=== PATIENT | female | born 1965 | race Caucasian/White ===

== ENCOUNTER → 2016-06-24 | Outpatient (CLI) | payer OTHER ==
--- NOTE | 2016-06-24 12:54 | MM ---
Reason for exam: screening (asymptomatic). Last mammogram was performed 1 year ago. History: Patient has history of other cancer at age 47. Family history of breast cancer in mother at age 73, breast cancer in maternal cousin at age 47, and breast cancer in cousin at age 40. Taking hormonal contraceptives for 1 year. Physical Findings: A clinical breast exam by your physician is recommended on an annual basis and results should be correlated with mammographic findings. MG 3D Screening Mammo W/Cad Bilateral CC and MLO view(s) were taken. Prior study comparison: July 02, 2015, bilateral MG screening mammo w CAD. December 27, 2013, left breast MG work up mamm w CAD LT. There are scattered fibroglandular densities. Finding: There are typically benign round calcifications in both breasts. There is a chronic nodularity bilaterally. There is no discrete abnormality. ASSESSMENT: Benign, BI-RAD 2 RECOMMENDATION: Routine screening mammogram of both breasts in 1 year.
== END | disposition home or self-care (01) ==
LOC: RADMAMWWP 07:29
PROVIDERS: ATTEND Obstetrics & Gynecology
DX: Z12.31 Encounter for screening mammogram for malignant neoplasm of breast (principal)
CPT/HCPCS: 77063; G0202

== ENCOUNTER → 2016-06-25 | Outpatient (CLI) | payer OTHER ==
[2016-06-25 16:21] LABS: Blood Urea Nitrogen 12 mg/dL (7-17); Non-African American GFR(MDRD) >60 (>60 ml/min/1.73 sqM)
== END | disposition home or self-care (01) ==
LOC: LABWHC1 15:47
PROVIDERS: ATTEND Psychiatry & Neurology Neurology
DX: Z01.818 Encounter for other preprocedural examination (principal); H53.9 Unspecified visual disturbance; H53.8 Other visual disturbances; R26.9 Unspecified abnormalities of gait and mobility; M54.2 Cervicalgia; M54.5 Low back pain; M54.30 Sciatica, unspecified side
CPT/HCPCS: 36415; 82565; 84520

== ENCOUNTER → 2016-06-26 | Outpatient (CLI) | payer OTHER ==
--- NOTE | 2016-06-26 12:32 | MR ---
EXAMINATION TYPE: MR brain wo/w con DATE OF EXAM: 06/26/2016 8:00 AM COMPARISON: NONE HISTORY: Abn gait, visual disturbance, blurred vision, philippe TECHNIQUE: Multiplanar, multisequence images of the brain and brainstem is performed without and with utilizing 20 mL intravenous MultiHance gadolinium contrast. Demyelinating disease protocol with additional Sag ittal Flair sequence performed. FINDINGS: T2 Lesions Present : None Approximate Number of Lesions: 0 Locations Identified : None Diffusion weighted images demonstrate no evidence of a recent infarct or other diffusion abnormality. There is no worrisome extra-axial fluid collection. The ventricular system and cisternal spaces ar e normal in size and appearance. The brain volume is age appropriate. Midline structures demonstrate normal morphology. The craniocervical junction appears within normal limits. Post contrast images demonstrate no abnormal enhancement. The dural venous sinuses appear pa tent. The visualized sinuses are clear and the globes are intact. Mild chronic ethmoidal sinusitis. IMPRESSION: No distinct intracranial abnormality identified at this time.
--- NOTE | 2016-06-26 12:40 | MR ---
EXAMINATION TYPE: MR hawley/nikunj wo/w con DATE OF EXAM: 06/26/2016 7:59 AM COMPARISON: 04/15/2015 HISTORY: Cervicalgia, Lumbago CONTRAST: The patient was injected with 20 mL intravenous MultiHance gadolinium contrast. Multiplanar MultiSpin echo imaging of the cervical spine was performed. C2-C3: No evidence for degenerative disc disease. No disc bulge/herniation or protrusion. No Canal stenosis. Foramina are patent bilaterally. C3-C4: No evidence for degenerative disc disease. No disc bulge/herniation or protrusion. No Canal stenosis. Foramina are patent bilaterally. C4-C5: No evidence for degenerative disc disease. No disc bulge/herniation or protrusion. No Canal stenosis. Foramina are patent bilaterally. C5-C6: There is evidence of mild disc desiccation. Again noted is a left paracentral disc herniation with minimal ventral CORD contact suggested. The overall appearance is unchanged relative to the prio r study. There is no evidence for central stenosis or foraminal encroachment. C6-C7:No evidence for degenerative disc disease. No disc bulge/herniation or protrusion. No Canal s tenosis. Foramina are patent bilaterally. C7-T1: No evidence for degenerative disc disease. No disc bulge/herniation or protrusion. No Canal stenosis. Foramina are patent bilaterally. No cervical spine fracture. There is normal alignment. Cervical spinal cord is of normal signal. C raniovertebral junction relationships are within normal limits. No pathologic enhancement. IMPRESSION: 1. No significant change in disc desiccation and left paracentral disc herniation at C5-6. EXAMINATION TYPE: MR reagan wo/w con DATE OF EXAM: 06/26/2016 7:59 AM COMPARISON: 04/15/2015 HISTORY: Cervicalgia, Lumbago CONTRAST: The patient was injected with 20 mL intravenous MultiHance gadolinium contrast. Multiplanar, MultiSpin echo imaging of the lumbar spine was performed. L1-L2: Normal disc appearance without desiccation. No herniation, protrusion or disc bulging. No ca nal stenosis is present. Foramina are patent bilaterally. L2-L3: Normal disc appearance without desiccation. No herniation, protrusion or disc bulging. No ca nal stenosis is present. Foramina are patent bilaterally. L3-L4: Normal disc appearance without desiccation. No herniation, protrusion or disc bulging. No ca nal stenosis is present. Foramina are patent bilaterally. L4-L5: Normal disc appearance without desiccation. No herniation, protrusion or disc bulging. No ca nal stenosis is present. Foramina are patent bilaterally. L5-S1: Normal disc appearance without desiccation. No herniation, protrusion or disc bulging. No ca nal stenosis is present. Foramina are patent bilaterally. Lumbar segments are intact. No paraspinal masses are identified. Conus medullaris has a normal appe arance. IMPRESSION: 1. No significant abnormality of the lumbar spine.
== END | disposition home or self-care (01) ==
LOC: RADMRIMAIN 06:16
PROVIDERS: ATTEND Psychiatry & Neurology Neurology
DX: M50.222 Other cervical disc displacement at C5-C6 level (principal); M54.5 Low back pain; M54.30 Sciatica, unspecified side; H53.8 Other visual disturbances; R26.9 Unspecified abnormalities of gait and mobility
CPT/HCPCS: 70553; 72156; 72158; A9577

== ENCOUNTER → 2017-07-09 | Outpatient (CLI) | payer BC ==
--- NOTE | 2017-07-12 10:57 | MM ---
Reason for exam: screening (asymptomatic). Last mammogram was performed 1 year ago. History: Patient has history of other cancer at age 47. Family history of breast cancer in 2 maternal aunts, breast cancer in mother at age 73, breast cancer in maternal cousin at age 47, and breast cancer in cousin at age 40. Taking hormonal contraceptives for 1 year. Physical Findings: A clinical breast exam by your physician is recommended on an annual basis and results should be correlated with mammographic findings. MG 3D Screening Mammo W/Cad Bilateral CC and MLO view(s) were taken. Prior study comparison: June 24, 2016, bilateral MG 3d screening mammo w/cad. July 02, 2015, bilateral MG screening mammo w CAD. There are scattered fibroglandular densities. There are benign appearing stable left breast masses. No suspicious abnormality. No significant changes when compared with prior studies. ASSESSMENT: Incomplete: need additional imaging evaluation, BI-RAD 0 RECOMMENDATION: Ultrasound of the left breast. (as the patient describes increased palpable abnormality) [facility] will attempt to contact patient to return for ultrasound.
== END | disposition home or self-care (01) ==
LOC: RADMAMWWP 07:26
PROVIDERS: ATTEND Family Medicine
DX: Z12.31 Encounter for screening mammogram for malignant neoplasm of breast (principal); Z80.3 Family history of malignant neoplasm of breast
CPT/HCPCS: 77063; 77067

== ENCOUNTER → 2017-07-13 | Outpatient (CLI) | payer BC ==
--- NOTE | 2017-07-13 10:02 | USB ---
Reason for exam: additional evaluation requested from abnormal screening. History: Patient has history of other cancer at age 47. Family history of breast cancer in 2 maternal aunts, breast cancer in mother at age 73, breast cancer in maternal cousin at age 47, and breast cancer in cousin at age 40. Taking hormonal contraceptives for 1 year. Physical Findings: Nurse Summary: superficial nodule 0.25cn at 6 o'clock, 12:30 and 2 o'clock (nurse mellisa). US Breast Workup Limited LT Left breast ultrasound demonstrates a 0.8 x 0.4cm oval, solid lesion in skin at retroareolar position and a 0.5cm oval, solid lesion in skin at retroareolar position. Probable sebaceous cysts. These results were verbally communicated with the patient and result sheet given to the patient on 07/13/17. ASSESSMENT: Benign, BI-RAD 2 RECOMMENDATION: Return to routine screening mammogram schedule for both breasts. Manage patient on a clinical basis.
== END | disposition home or self-care (01) ==
LOC: RADUSWWP 08:26
PROVIDERS: ATTEND Family Medicine
DX: R92.8 Other abnormal and inconclusive findings on diagnostic imaging of breast (principal)

== ENCOUNTER → 2017-08-19 | Outpatient (CLI) | payer BC ==
[2017-08-19 20:30] LABS: Gliadin AB IgA, Unit 2.1 U/mL
== END | disposition home or self-care (01) ==
LOC: LABWHC1 08:38
PROVIDERS: ATTEND Internal Medicine Gastroenterology
DX: K52.9 Noninfective gastroenteritis and colitis, unspecified (principal)
CPT/HCPCS: 36415; 83516

== ENCOUNTER → 2018-02-10 | Outpatient (CLI) | payer BC ==
[2018-02-10 12:21] LABS: Blood Urea Nitrogen 14 mg/dL (7-17)
== END | disposition home or self-care (01) ==
LOC: LABWHC1 10:53
PROVIDERS: ATTEND Psychiatry & Neurology Neurology
DX: Z01.812 Encounter for preprocedural laboratory examination (principal)
CPT/HCPCS: 36415; 82565; 84520

== ENCOUNTER → 2018-07-26 | Outpatient (CLI) | payer BC ==
--- NOTE | 2018-07-26 11:13 | MM ---
Reason for exam: screening (asymptomatic). Last mammogram was performed 1 year and 1 month ago. History: Patient has history of other cancer at age 47. Family history of breast cancer in 2 maternal aunts, breast cancer in mother at age 73, breast cancer in maternal cousin at age 47, and breast cancer in cousin at age 40. Taking hormonal contraceptives for 1 year. Physical Findings: A clinical breast exam by your physician is recommended on an annual basis and results should be correlated with mammographic findings. MG 3D Screening Mammo W/Cad Bilateral CC and MLO view(s) were taken. Prior study comparison: July 09, 2017, bilateral MG 3d screening mammo w/cad. June 24, 2016, bilateral MG 3d screening mammo w/cad. There are scattered fibroglandular densities. Benign appearing bilateral calcifications. There is chronic nodularity bilaterally. No significant changes when compared with prior studies. ASSESSMENT: Benign, BI-RAD 2 RECOMMENDATION: Routine screening mammogram of both breasts in 1 year.
== END | disposition home or self-care (01) ==
LOC: RADMAMWWP 07:13
PROVIDERS: ATTEND Family Medicine
DX: Z12.31 Encounter for screening mammogram for malignant neoplasm of breast (principal)
CPT/HCPCS: 77063; 77067

== ENCOUNTER → 2020-06-20 | Outpatient (CLI) | payer BC ==
--- NOTE | 2020-06-20 15:45 | CONS ---
CONSULTATION DATE OF SERVICE: 06/20/2020 This 54-year-old lady has been evaluated in the sleep center for possible obstructive sleep apnea-hypopnea syndrome and significant excessive daytime sleepiness. HISTORY OF PRESENT ILLNESS/SLEEP-WAKE EVALUATION: Patient's usual sleep schedule is from 10 or 12 midnight until 6:30 or 6:45 a.m. on weekdays and until 8 a.m. on weekends. No problems with falling asleep, although she reads in her bedroom. She prefers to sleep on the side and back positions. She sleeps with loud snoring and witnessed episodes of stopped breathing during sleep. She wakes up from sleep 3 times with episodes of choking, nocturia, dry mouth, heartburn, panic attacks. In the morning the patient wakes up tired, falling asleep during the day, has problems with memory, concentration, depression and anxiety. [place] Sleepiness Scale is in very high range at 19. The patient may take up to 3 naps during the day when she is not working. No history of hypnagogic hallucinations, sleep paralysis or cataplexy. PAST MEDICAL HISTORY: Positive for hypertension, and this is not under good control with medication, according to patient, anxiety, PVCs, asthma, sinus problems, headaches. PAST SURGICAL HISTORY: Surgery for cervical carcinoma, basal cell carcinoma of the skin, status post intrauterine device inserted and removed for metrorrhagia and anemia. MEDICATIONS: 1. Effexor ER 150 mg once a day and Effexor 37.5 mg once a day. 2. Metoprolol 50 mg extended-release. 3. Amlodipine 5 mg at bedtime. 4. Omeprazole 20 mg twice a day. 5. Alprazolam 0.5 mg up to 3 times a day as needed. 6. Albuterol inhaler as needed. SOCIAL HISTORY: Negative for smoking. Alcohol consumption rarely. FAMILY HISTORY: Hyperlipidemia, diabetes. PHYSICAL EXAMINATION: GENERAL: A pleasant lady without distress. VITAL SIGNS: BP 108/80, HR 80, RR 12, height 5 feet 4 inches, weight 226.8 pounds, body mass index 38.7, temperature 98.1, oxygen saturation at room air 99%. HEENT: PERRLA, EOMI. Evaluation of oropharynx showed tongue protrudes midline. Low position of soft palate. Mallampati III. NECK: Supple. No JVD. Thyroid is not palpable. Neck measures 14-1/2 inches in circumference. LUNGS: Clear to percussion and to auscultation. Good air exchange. No wheezing or rhonchi. HEART: S1, S2 regular. No murmurs, gallops or rubs. ABDOMEN: Slightly obese. EXTREMITIES: No clubbing or cyanosis. COST CONTROL SPECIALIST: Awake, alert, and oriented X3. Cranial nerves 2 to 7 intact. There is no fasciculation or atrophy. noted. No focal deficits observed. IMPRESSION: 1. Loud snoring, witnessed episodes of stopped breathing during sleep, low position of soft palate, multiple awakenings from sleep; obstructive sleep apnea-hypopnea syndrome. 2. Significant excessive daytime sleepiness. [place] Sleepiness Scale is 19, dictating necessity to include hypersomnia in differential diagnosis. 3. Hypertension. 4. History of anxiety. 5. History of premature ventricular contractions. 6. Asthma. 7. Sinus problems. 8. Headaches. 9. Status post surgical treatment of cervical carcinoma. 10.Status post treatment of basal cell carcinoma of the skin. 11.Acid reflux. 12.History of anemia. PLAN: 1. Home sleep apnea test to check for aspiration during sleep. 2. If the home test is negative, polysomnogram with multiple sleep latency test for objective evaluation patient's symptoms of significant excessive daytime sleepiness. Differential diagnosis is hypersomnia. 3. Losing weight. 4. Sleep hygiene with regular time in bed for at least 7-1/2 to 8 hours. 5. No driving if feeling sleepiness. Thank you very much for referring this patient for consultation. Sincerely, Geovanni Zepeda MD, PhD, FAASM Diplomat of [place] [employer] [place] [employer] Linux Server Engineer of [facility] MMODL / NAMITAN: [id number] /
== END | disposition home or self-care (01) ==
LOC: SLEEP 13:18
PROVIDERS: ATTEND Internal Medicine
DX: G47.33 Obstructive sleep apnea (adult) (pediatric) (principal); I10 Essential (primary) hypertension; J45.909 Unspecified asthma, uncomplicated; R51.9 Headache, unspecified; J34.9 Unspecified disorder of nose and nasal sinuses; K21.9 Gastro-esophageal reflux disease without esophagitis; Z86.79 Personal history of other diseases of the circulatory system; Z80.8 Family history of malignant neoplasm of other organs or systems; Z85.41 Personal history of malignant neoplasm of cervix uteri; Z86.59 Personal history of other mental and behavioral disorders; Z79.899 Other long term (current) drug therapy
CPT/HCPCS: 99211

== ENCOUNTER → 2020-07-01 | Outpatient (CLI) | payer BC ==
--- NOTE | 2020-07-02 11:16 | MM ---
Reason for exam: screening (asymptomatic). Last mammogram was performed 1 year and 11 months ago. History: Patient has history of endometrial cancer at age 52 and has history of other cancer at age 47. Family history of breast cancer in 2 maternal aunts, breast cancer in mother at age 73, breast cancer in maternal cousin at age 47, and breast cancer in cousin at age 40. Took hormonal contraceptives for 1 year. Physical Findings: A clinical breast exam by your physician is recommended on an annual basis and results should be correlated with mammographic findings. MG 3D Screening Mammo W/Cad Bilateral CC and MLO view(s) were taken. Prior study comparison: July 26, 2018, bilateral MG 3d screening mammo w/cad. July 09, 2017, bilateral MG 3d screening mammo w/cad. There are scattered fibroglandular densities. Benign oil cyst calcifications greater in the left breast. No significant changes when compared with prior studies. ASSESSMENT: Benign, BI-RAD 2 RECOMMENDATION: Routine screening mammogram of both breasts in 1 year.
== END ==
LOC: RADMAMWWP 07:19
PROVIDERS: ATTEND Family Medicine
DX: Z12.31 Encounter for screening mammogram for malignant neoplasm of breast (principal); Z80.3 Family history of malignant neoplasm of breast; Z85.42 Personal history of malignant neoplasm of other parts of uterus
CPT/HCPCS: 77063; 77067

== ENCOUNTER → 2021-02-20 | Outpatient (CLI) | payer OTHER ==
--- NOTE | 2021-02-21 11:10 | SFUN ---
SLEEP CENTER FOLLOW UP NOTE DATE OF SERVICE: 02/20/2021 This 55-year-old lady has been followed in Sleep Center for treatment of obstructive sleep apnea-hypopnea syndrome. The patient continues to snore and wakes up 3 times with episodes of choking and panic attacks. She also feels sleepy during the day. Today her [place] Sleepiness Scale is significantly high at 17. The patient had a home sleep apnea test in August of 2020 which documented that she has obstructive sleep apnea-hypopnea syndrome. Because of insurance issues, the patient was not able to get her CPAP equipment. PRESENT MEDICATIONS: 1. Effexor 150 mg once a day and 37.5 mg once a day. 2. Metoprolol 50 mg extended-release once a day. 3. Amlodipine 5 mg once a day. 4. Omeprazole 20 mg twice a day. 5. Alprazolam 0.5 mg as needed. 6. Albuterol inhaler as needed. PHYSICAL EXAMINATION: GENERAL: Pleasant patient in no distress. VITAL SIGNS: BP 129/86, HR 67, RR 15, height 5 feet 4 inches, weight 224, temperature 97.3, oxygen saturation at room air 98%. HEENT: PERRLA, EOMI, evaluation of oropharynx showed tongue protrudes midline. Low position of soft palate; Mallampati III. NECK: Supple, no JVD. Thyroid is not palpable. LUNGS: Clear to percussion and to auscultation. Good air exchange. No wheezing or rhonchi. HEART: S1, S2 regular. No murmurs, gallops, or rubs. ABDOMEN: Soft and nontender. Bowel sounds are present. No organomegaly appreciated. EXTREMITIES: No clubbing or cyanosis. INSPECTOR SUBASSEMBLY: Awake, alert, and oriented X3. Cranial nerves 2 to 7 intact. There is no fasciculation or atrophy. noted. No focal deficits observed. IMPRESSION: 1. Obstructive sleep apnea-hypopnea syndrome. 2. Significant excessive daytime sleepiness. [place] Sleepiness Scale 17. 3. Hypertension. 4. History of anxiety. 5. Asthma. 6. History of premature ventricular contractions. 7. Sinus problems. 8. Headaches. 9. Status post surgical treatment of cervical carcinoma. 10.Status post treatment of basal cell carcinoma of the skin. 11.Acid reflux. 12.History of anemia. PLAN: 1. Prescription for CPAP unit with range of the pressure 5 to 15. AirFit nasal pillow mask, probably extra-small size of pillows. Heated humidifier. 2. Patient should start using CPAP equipment every night for the whole night. 3. I will see the patient for follow-up visit in 30 to 90 days after she starts treatment with CPAP to evaluate clinical response on treatment, compliance with treatment and to make any necessary adjustments related to mask fitting, pressure and humidification. 4. If the patient continues to feel sleepy while on treatment with CPAP, we may consider proceeding with a multiple sleep latency test for objective evaluation of symptoms of excessive daytime sleepiness. 5. Losing weight. 6. Precautions related to driving. No driving if feeling sleepiness. Thank you very much for allowing me to participate in the management of your patient. Sincerely, Geovanni Zepeda MD, PhD, FAASM Diplomat of [place] [employer] Sleep Medicine Board of [place] [employer] Currency Exchange Specialist of [facility] [place] MMHIRAML / NAMITAN: [id number] /
== END ==
LOC: SLEEP 17:01
PROVIDERS: ATTEND Internal Medicine
DX: G47.33 Obstructive sleep apnea (adult) (pediatric) (principal); I10 Essential (primary) hypertension; K21.9 Gastro-esophageal reflux disease without esophagitis; F41.9 Anxiety disorder, unspecified; J45.909 Unspecified asthma, uncomplicated; J34.9 Unspecified disorder of nose and nasal sinuses; Z86.79 Personal history of other diseases of the circulatory system; Z85.41 Personal history of malignant neoplasm of cervix uteri; Z98.890 Other specified postprocedural states; Z85.828 Personal history of other malignant neoplasm of skin; Z79.899 Other long term (current) drug therapy; Z91.09 Other allergy status, other than to drugs and biological substances

== ENCOUNTER → 2021-03-13 | Outpatient (CLI) | payer OTHER ==
[2021-03-13 11:24] LABS: Basophils # (A) 0.03 X 10*3/uL (0.00-0.10); Basophils % (A) 0.6 %; Eosinophils # (A) 0.06 X 10*3/uL (0.04-0.35); Eosinophils % (A) 1.2 %; HCT 39.9 % (37.2-46.3); HGB 12.8 g/dL (12.0-15.0); Lymphocytes # (A) 2.27 X 10*3/uL (0.90-5.00); Lymphocytes % (A) 46.1 %; MCH 29.8 pg (27.0-32.0); MCHC 32.1 g/dL (32.0-37.0); MCV 92.8 fL (80.0-97.0); Mean Platelet Volume 9.5 fL (9.5-12.2); Monocytes # (A) 0.29 X 10*3/uL (0.20-1.00); Monocytes % (A) 5.9 %; Neutrophils # (A) 2.26 X 10*3/uL (1.80-7.70); Platelet Count 244 X 10*3/uL (140-440); WBC 4.92 X 10*3/uL (4.50-10.00)
[2021-03-13 14:36] LABS: ALT 27 U/L (8-44); AST 23 U/L (13-35); African American GFR (CKD) 115.2 (60.0-200.0); Albumin 4.3 g/dL (3.8-4.9); Albumin/Globulin Ratio 2.15 (1.60-3.17); Alkaline Phosphatase 88 U/L (41-126); BUN/Creat Ratio 16.86 Ratio (12.00-20.00); Blood Urea Nitrogen 11.4 mg/dL (9.0-27.0); Calcium 9.1 mg/dL (8.7-10.3); Carbon Dioxide 26.9 mmol/L (21.6-31.8); Chloride 105 mmol/L (96-109); Chol/HDL Ratio 3.89 Ratio; Glucose 114 mg/dL (70-110); LDL Cholesterol,Calculated 153.9 mg/dL (0.0-131.0); Non-African American GFR(CKD) 99.4 (60.0-200.0); Sodium 142 mmol/L (135-145); Total Protein 6.3 g/dL (6.2-8.2); VLDL Calculation 18.52 mg/dL (5.00-40.00)
== END | disposition home or self-care (01) ==
LOC: LABWHC1 07:21
PROVIDERS: ATTEND Family Medicine
DX: Z00.00 Encounter for general adult medical examination without abnormal findings (principal); E55.9 Vitamin D deficiency, unspecified; R53.83 Other fatigue
CPT/HCPCS: 36415; 80053; 80061; 82306; 84443; 85025

== ENCOUNTER → 2021-06-27 | Outpatient (CLI) | payer OTHER ==
--- NOTE | 2021-06-27 14:52 | MR ---
EXAMINATION TYPE: MR knee RT wo con DATE OF EXAM: 06/27/2021 COMPARISON: Plain film 06/20/2021 HISTORY: Inner and Posterior Rt knee pain and swelling x3 weeks TECHNIQUE: Multiplanar, multisequence imaging of the right knee is performed without IV contrast. FINDINGS: MEDIAL MENISCUS: Anterior and posterior horns are intact without tear. LATERAL MENISCUS: Anterior and posterior horns are intact without tear. CRUCIATE LIGAMENTS: The anterior and posterior cruciate ligaments are intact and unremarkable. COLLATERAL LIGAMENTS: The medial collateral ligament and lateral collateral ligament complex are inta ct and unremarkable. EXTENSOR MECHANISM: Visualized quadriceps and patellar tendons are intact. EFFUSION: No significant suprapatellar joint effusion. POPLITEAL CYST: Small semimembranosus gastrocnemius cyst noted measuring approximate 4 cm x 2 cm x 1 cm in size, there are internal septations. TRICOMPARTMENT SPACES: Maintained CARTILAGE: Grade 2 to grade III chondromalacia medial and lateral femoral condyles, posterior patella BONE MARROW SIGNAL: No focal abnormal marrow signal is appreciated. OTHER: Some prepatellar soft tissue edema is present within the subcutaneous fat IMPRESSION: Osteoarthritis. Joint effusion and Gonzalez's cyst.
== END | disposition home or self-care (01) ==
LOC: RADMRIMAIN 06:55
PROVIDERS: ATTEND Emergency Medicine
DX: M17.11 Unilateral primary osteoarthritis, right knee (principal); M25.461 Effusion, right knee; M71.21 Synovial cyst of popliteal space [Baker], right knee

== ENCOUNTER → 2021-07-17 | Outpatient (CLI) | payer MEDICAID ==
--- NOTE | 2021-07-17 21:57 | SFUN ---
SLEEP CENTER FOLLOW UP NOTE DATE OF SERVICE: 07/17/2021. 55-year-old lady has been followed in Sleep Center for treatment of obstructive sleep apnea-hypopnea syndrome. The patient had home sleep apnea test which showed obstructive sleep apnea-hypopnea syndrome. Subsequently after that, the patient was started on treatment with auto PAP. Today is her first visit after treatment was initiated. The patient is able to use CPAP equipment every night. At the beginning, she had some difficulties and did not feel much improvements, but presently after her mask was changed to under the nose mask N30I she feels much more comfortable, able to use it every night, feels better during the day and sleeps better with the machine. Ferdinand Sleepiness Scale is 4, which is in normal range. I checked information about CPAP unit. It is in automatic regimen. Range of the pressure 5-15, average pressure 10.7 cm of water, maximal pressure is 12 cm of water. Usage is 100% of nights and 93% of nights more than 4 hours, average usage 6 hours 18 minutes which demonstrated great compliance. Leak is 22.5 L/minute and 95%. Maximal leak up to 78.8 L/minute. Possibly the patient sometimes opens her mouth. Apnea- hypopnea index only 1.4 which is absolutely normal. MEDICATIONS: Effexor XR 150 mg once a day and Effexor XR 37.5 mg once a day, omeprazole 20 mg twice a day, Norvasc 5 mg once a day, metoprolol extended release 50 mg once a day, Xanax 0.5 mg up to 3 times a day as needed, ProAir inhaler as needed, vitamins supplements. PHYSICAL EXAMINATION: GENERAL: lady without distress. BP 110/76, HR 87, RR 16, height 5 feet 4 inches, weight 227 pounds, temperature 97.7, oxygen saturation at room air 97%. Oropharynx: Low position of soft palate, Mallampati 3. NECK: Supple, no JVD. Thyroid is not palpable. LUNGS: Clear to percussion and to auscultation. Good air exchange. No wheezing or rhonchi. HEART: S1, S2 regular. No murmurs, gallops, or rubs. ABDOMEN: Soft and nontender. Bowel sounds are present. No organomegaly appreciated. EXTREMITIES: No clubbing or cyanosis. STRIP PRESSER: Awake, alert, and oriented X3. Cranial nerves 2 to 7 intact. There is no fasciculation or atrophy. noted. No focal deficits observed. IMPRESSION: 1. Obstructive sleep apnea-hypopnea syndrome. Patient demonstrated great compliance with treatment and benefitting from treatment, normal respiration on CPAP, improving alertness on CPAP. Ferdinand Sleepiness Scale decreased for 17 down to 4. 2. Hypertension. 3. History of anxiety. 4. Asthma. 5. History of premature ventricular contractions. 6. History of headaches. 7. Status post cervical cancer surgically treated in 2017. 8. Status post gastric sleeve 2011. 9. Status post lithotripsy for kidney stones. 10.Status post left foot surgery 2009. 11.Status post treatment for basal cell carcinoma of the face in 2011. PLAN: 1. Low-sodium diet. We discussed with the patient the position of the CPAP unit, adjustments of the temperature in humidifier and in the tube. 2. Sleep hygiene with regular time bed for at least 7-1/2 to 8 hours. 3. Continue to use CPAP equipment every night. 4. Precautions related to driving. No driving if feeling sleepiness. 5. Consider evaluation by Ear, Nose and Throat physician for possible polyp in the nose. 6. Follow-up visit in 6 months or earlier if patient has any problems. Thank you very much for allowing me to participate in management of your patient. Sincerely, Geovanni Zepeda MD, PhD, FAASM Diplomat of [place] [employer] Sleep Medicine Board of [place] [employer] Chalk Machine Operator of [facility] [place] MMODL / NAMITAN: [id number] /
== END ==
LOC: SLEEP 17:07
PROVIDERS: ATTEND Internal Medicine
DX: G47.33 Obstructive sleep apnea (adult) (pediatric) (principal); I10 Essential (primary) hypertension; F41.9 Anxiety disorder, unspecified; J45.909 Unspecified asthma, uncomplicated; Z86.79 Personal history of other diseases of the circulatory system; Z98.890 Other specified postprocedural states; Z98.84 Bariatric surgery status; Z99.89 Dependence on other enabling machines and devices; Z85.41 Personal history of malignant neoplasm of cervix uteri; Z85.828 Personal history of other malignant neoplasm of skin; Z87.442 Personal history of urinary calculi

== ENCOUNTER → 2021-08-26 | Outpatient (CLI) | payer MEDICAID, OTHER ==
--- NOTE | 2021-08-27 12:26 | MM ---
Reason for exam: screening (asymptomatic). Last mammogram was performed 1 year and 2 months ago. History: Patient has history of endometrial cancer at age 52 and has history of other cancer at age 47. Family history of breast cancer in 2 maternal aunts, breast cancer in mother at age 73, breast cancer in maternal cousin at age 47, and breast cancer in cousin at age 40. Took hormonal contraceptives for 1 year. Physical Findings: A clinical breast exam by your physician is recommended on an annual basis and results should be correlated with mammographic findings. MG 3D Screening Mammo W/Cad Bilateral CC and MLO view(s) were taken. Prior study comparison: July 01, 2020, bilateral MG 3d screening mammo w/cad. July 26, 2018, bilateral MG 3d screening mammo w/cad. There are scattered fibroglandular densities. No significant changes when compared with prior studies. ASSESSMENT: Benign, BI-RAD 2 RECOMMENDATION: Routine screening mammogram of both breasts in 1 year.
== END | disposition home or self-care (01) ==
LOC: RADMAMWWP 07:09
PROVIDERS: ATTEND Family Medicine
DX: Z12.31 Encounter for screening mammogram for malignant neoplasm of breast (principal); Z80.3 Family history of malignant neoplasm of breast; Z85.42 Personal history of malignant neoplasm of other parts of uterus
CPT/HCPCS: 77063; 77067

== ENCOUNTER → 2022-03-25 | Outpatient (CLI) | payer MEDICAID, OTHER ==
--- NOTE | 2022-03-26 10:29 | US ---
EXAMINATION TYPE: US kidneys/renal and bladder DATE OF EXAM: 03/25/2022 COMPARISON: None CLINICAL HISTORY: R10.9 UNSPECIFIED ABDOMINAL PAIN. Patient states having a hx of renal stones. Righ t flank pain. EXAM MEASUREMENTS: Right Kidney: 9.9 x 4.9 x 3.9 cm Left Kidney: 11.2 x 4.5 x 4.9 cm Right Kidney: No hydronephrosis or masses seen Left Kidney: No hydronephrosis or masses seen Bladder: Distended, anechoic Bilateral Jets not seen There is no evidence for hydronephrosis at this point in time. No nephrolithiasis is seen. No bo s are identified. The urinary bladder is anechoic. IMPRESSION: No evidence for obstructive uropathy.
== END | disposition home or self-care (01) ==
LOC: RADUSWWP 16:06
PROVIDERS: ATTEND Family Medicine
DX: R10.9 Unspecified abdominal pain (principal); Z87.442 Personal history of urinary calculi
CPT/HCPCS: 76770

== ENCOUNTER → 2022-08-25 | Outpatient (CLI) | payer MEDICAID, OTHER ==
--- NOTE | 2022-08-26 07:36 | MM ---
Reason for Exam: Screening (asymptomatic). Last screening mammogram was performed 12 month(s) ago. Patient History: Menarche at age 17. First Full-Term at age 20. Postmenopausal. Other cancer, age 47. Endometrial cancer, age 52. Patient tested for BRCA1 outcome was negative. Patient used Hormonal Contraceptives for 1 year. Maternal cousin had breast cancer, age 47. Maternal cousin had breast cancer, age 40. Maternal aunt had breast cancer, age 80. Maternal aunt had breast cancer, age 35. Maternal cousin had breast cancer, age 50. Maternal cousin had breast cancer, age 52. Maternal cousin had breast cancer, age 55. Mother had breast cancer, age 73. Risk Values: Kajal 5 year model risk: 2.0%. NCI Lifetime model risk: 13.5%. Prior Study Comparison: 07/26/2018 Bilateral Screening Mammogram, [facility]. 07/01/2020 Bilateral Screening Mammogram, [facility]. 08/26/2021 Bilateral Screening Mammogram, [facility]. Tissue Density: The breast tissue is almost entirely fat. Findings: Analyzed By CAD. There is no suspicious group of microcalcifications or new suspicious mass in either breast. Overall Assessment: Negative, BI-RAD 1 Management: Screening Mammogram of both breasts in 1 year. A clinical breast exam by your physician is recommended on an annual basis and results should be correlated with mammographic findings. [facility] will attempt to contact patient to return for supplemental views and ultrasound if indicated. Electronically signed and approved by: Gary Briones DO
== END | disposition home or self-care (01) ==
LOC: RADMAMWWP 07:57
PROVIDERS: ATTEND Family Medicine
DX: Z12.31 Encounter for screening mammogram for malignant neoplasm of breast (principal); Z78.0 Asymptomatic menopausal state; Z80.3 Family history of malignant neoplasm of breast
CPT/HCPCS: 77063; 77067

== ENCOUNTER → 2023-06-02 | Outpatient (CLI) | payer MEDICAID, OTHER ==
[2023-06-02 16:04] LABS: Basophils # (A) 0.05 X 10*3/uL (0.00-0.10); Basophils % (A) 0.8 %; Eosinophils # (A) 0.07 X 10*3/uL (0.04-0.35); Eosinophils % (A) 1.1 %; HCT 40.4 % (37.2-46.3); HGB 12.9 g/dL (12.0-15.0); Lymphocytes # (A) 2.92 X 10*3/uL (0.90-5.00); Lymphocytes % (A) 46.3 %; MCH 29.9 pg (27.0-32.0); MCHC 31.9 g/dL (32.0-37.0); MCV 93.5 FL (80.0-97.0); Mean Platelet Volume 9.7 FL (9.5-12.2); Monocytes # (A) 0.34 X 10*3/uL (0.20-1.00); Monocytes % (A) 5.4 %; NRBC Per 100 WBC 0 X 10*3/uL (0.00-0.01); Neutrophils # (A) 2.91 X 10*3/uL (1.80-7.70); Neutrophils % (A) 46.2 %; Platelet Count 261 X 10*3/uL (140-440); RBC 4.32 X 10*6/uL (4.10-5.20); RDW 12.8 % (11.5-14.5)
[2023-06-02 16:34] LABS: ALT 25 U/L (8-44); AST 20 U/L (13-35); Albumin 4.3 g/dL (3.8-4.9); Albumin/Globulin Ratio 2.39 Ratio (1.60-3.17); Alkaline Phosphatase 84 U/L (41-126); Blood Urea Nitrogen 10.2 mg/dL (9.0-27.0); Calcium 9.5 mg/dL (8.7-10.3); Carbon Dioxide 25.2 mmol/L (21.6-31.8); Chloride 104 mmol/L (96-109); Chol/HDL Ratio 3.49 Ratio; Globulin 1.8 g/dL (1.6-3.3); Glucose 116 mg/dL (70-110); LDL Cholesterol,Calculated 120.8 mg/dL (0.0-131.0); Potassium 4.1 mmol/L (3.5-5.5); Sodium 143 mmol/L (135-145); Total Bilirubin 0.2 mg/dL (0.3-1.2); Total Protein 6.1 g/dL (6.2-8.2)
== END | disposition home or self-care (01) ==
LOC: LABWHC1 08:14
PROVIDERS: ATTEND Family Medicine
DX: Z00.00 Encounter for general adult medical examination without abnormal findings (principal); Z79.899 Other long term (current) drug therapy
CPT/HCPCS: 36415; 80053; 80061; 84443; 85025

== ENCOUNTER → 2023-06-24 | Outpatient (CLI) | payer MEDICAID, OTHER ==
--- NOTE | 2023-06-24 10:27 | MM ---
Reason for Exam: Clinical finding. Last screening mammogram was performed 10 month(s) ago. Indicated Problems: Non-bloody discharge of the left side (Clear) for 3 Week(s). Patient History: Menarche at age 17. First Full-Term at age 20. Postmenopausal. Other cancer, age 47. Endometrial cancer, age 52. Patient tested for BRCA1 outcome was negative. Patient used Hormonal Contraceptives for 1 year. Maternal cousin had breast cancer, age 47. Maternal cousin had breast cancer, age 40. Maternal aunt had breast cancer, age 80. Maternal aunt had breast cancer, age 35. Maternal cousin had breast cancer, age 50. Maternal cousin had breast cancer, age 52. Maternal cousin had breast cancer, age 55. Mother had breast cancer, age 73. Risk Values: Kajal 5 year model risk: 2.1%. NCI Lifetime model risk: 13.3%. Prior Study Comparison: 07/26/2018 Bilateral Screening Mammogram, [facility]. 07/01/2020 Bilateral Screening Mammogram, [facility]. 08/26/2021 Bilateral Screening Mammogram, [facility]. 08/25/2022 Bilateral MG 3D screening mammo w/cad, [facility]. Tissue Density: There are scattered fibroglandular densities. Findings: Analyzed By CAD. Benign bilateral oil cyst calcifications. No significant change from prior exams. Overall Assessment: Incomplete: need additional imaging evaluation, BI-RAD 0 Management: Diagnostic Breast Ultrasound of the left breast. Subareolar and periareolar for spontaneous clear nipple discharge. Electronically signed and approved by: Michelle Logan M.D. Radiologist
--- NOTE | 2023-06-24 10:27 | USB ---
Reason for Exam: Clinical finding. Patient History: Menarche at age 17. First Full-Term at age 20. Postmenopausal. Other cancer, age 47. Endometrial cancer, age 52. Patient tested for BRCA1 outcome was negative. Patient used Hormonal Contraceptives for 1 year. Maternal cousin had breast cancer, age 47. Maternal cousin had breast cancer, age 40. Maternal aunt had breast cancer, age 80. Maternal aunt had breast cancer, age 35. Maternal cousin had breast cancer, age 50. Maternal cousin had breast cancer, age 52. Maternal cousin had breast cancer, age 55. Mother had breast cancer, age 73. Risk Values: Kajal 5 year model risk: 2.1%. NCI Lifetime model risk: 13.3%. Technique: Method: Targeted. Prior Study Comparison: 07/01/2020 Bilateral Screening Mammogram, [facility]. 08/26/2021 Bilateral Screening Mammogram, [facility]. 08/25/2022 Bilateral MG 3D screening mammo w/cad, [facility]. Findings: The periareolar of the left breast, the axilla of the left breast and the retroareolar of the left breast were scanned. Targeted subareolar and periareolar ultrasound including scanning of the axilla shows no solid or cystic lesion or duct ectasia. No axillary adenopathy.. Overall Assessment: Suspicious, BI-RAD 4 Management: Surgical Consultation of the left breast. For further assessment of patient's reported spontaneous clear nipple discharge. Results were given to the patient verbally at the time of exam. Electronically signed and approved by: Michelle Logan M.D. Radiologist
== END | disposition home or self-care (01) ==
LOC: RADMAMWWP 09:22
PROVIDERS: ATTEND Obstetrics & Gynecology
DX: N60.01 Solitary cyst of right breast (principal); N60.02 Solitary cyst of left breast; N64.52 Nipple discharge; R92.323 Mammographic fibroglandular density, bilateral breasts; Z80.3 Family history of malignant neoplasm of breast; Z78.0 Asymptomatic menopausal state
CPT/HCPCS: 77062; 77066

== ENCOUNTER → 2023-07-22 | Outpatient (CLI) | payer MEDICAID ==
[2023-07-22 17:57] VITALS: BP 131/84; PULSE 74; RESP 16; TEMP 98.2
--- NOTE | 2023-07-22 18:11 | P.PN ---
Subjective DATE: 07/22/2023 FOLLOW UP VISIT. Patient with obstructive sleep apnea hypopnea syndrome return to sleep center for follow-up visit. Information from previous visit have been reviewed. Patient is using PAP equipment every night for the whole night, getting PAP supplies in time. The patient does not have significant problems with the mask, PAP unit and humidification. [place] sleepiness scale is likely increased to 10, sometimes patient feels sleepiness during the day, but usually secondary to not sufficient sleep during the night. I checked information from PAP unit. PAP unit pressure 5-14, average 11.4 cm H2O. Usage is 95% and 87% for more then 4 hours, average 6.75 hours per night. Leak is 15.7 l/m, which is in acceptable range. Apnea Hypopnea Index is 1.2, which is normal. MEDICATIONS:1. Effexor 150 mg once a day 2. Effexor 37.5 mg once a day 3. Omeprazole 20 mg twice a day 4. Metoprolol extended release 50 mg once a day 5. Norvasc 5 mg once a day in the evening 6. Xanax 0.5 mg as needed 7. ProAir inhaler as needed During physical exam: GENERAL: A pleasant patient without any distress. VITAL SIGNS: Please see below. HEENT: PERRLA, EOMI.low position of soft palate, Mallapati 3 . NECK: Supple. No JVD. LUNGS: Clear to percussion and to auscultation. Good air exchange. No wheezing or rhonchi. HEART: S1, S2 regular. ABDOMEN: Soft and nontender.[] EXTREMITIES: No clubbing or cyanosis. 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 No focal deficit. Impressions: 1. Obstructive sleep apnea-hypopnea syndrome. Patient demonstrated great compliance with treatment, benefiting from treatment. Patient still has episodes of sleepiness. 2. Hypertension. 3. Asthma. 4. History of anxiety. 5. History of nephrolithiasis, status post treatment with lithotripsy. 6. History of cervical cancer treated surgically in 2018. 7. Status post gastric sleeve in 2011. 8. History of increased eye pressure. 9. Status post basal cell carcinoma removed from the face. 10. History of glaucoma. Plan: 1. Continue using PAP equipment every night for the whole night. 2. To change air filter at least 1-2 times per month. 3. PAP unit should stay lower then position of the head. 4. Advised patient to remove all remaining water from humidifier canister daily and make it dry after each usage. Refill canister with fresh distilled water before each usage. 5. Sleep hygiene with regular time in bed for at least 8 hours. 6. Precautions related to driving. No driving if feel any sleepiness. 7. I will maintain prescription for PAP supplies including mask, tube, filters. 8. We may consider to use modafinil during the daytime to prevent excessive daytime sleepiness, if it will be necessary. 9. Follow up visit in 6 months or earlier if patient has any problems. Thank you very much for allowing me to participate in the management of your patient. Geovanni Zepeda MD, PhD, FAASM. Diplomat of [place] [employer], Sleep Medicine Board by [place] [facility] [facility] [place] Objective - Vital Signs Vital signs: Vital Signs Temp 98.2 F 07/22/23 17:15 Pulse 74 07/22/23 17:15 Resp 16 07/22/23 17:15 BP 131/84 07/22/23 17:15 Pulse Ox 99 07/22/23 17:15 FiO2 Intake & Output 07/21/23 07/22/23 07/22/23 18:59 06:59 18:59 Weight 101.605 kg
== END ==
LOC: 3 N SLEEP 17:04
PROVIDERS: ATTEND Internal Medicine
DX: G47.33 Obstructive sleep apnea (adult) (pediatric) (principal); I10 Essential (primary) hypertension; J45.909 Unspecified asthma, uncomplicated; F41.9 Anxiety disorder, unspecified; H40.9 Unspecified glaucoma; G47.10 Hypersomnia, unspecified; H40.059 Ocular hypertension, unspecified eye; Z85.41 Personal history of malignant neoplasm of cervix uteri; Z98.84 Bariatric surgery status; Z85.828 Personal history of other malignant neoplasm of skin; Z99.89 Dependence on other enabling machines and devices; Z79.899 Other long term (current) drug therapy; Z91.09 Other allergy status, other than to drugs and biological substances; Z91.018 Allergy to other foods; Z88.8 Allergy status to other drugs, medicaments and biological substances
CPT/HCPCS: 99212

== ENCOUNTER → 2023-08-16 | Outpatient (CLI) | payer MEDICAID ==
--- NOTE | 2023-08-17 00:05 | XR ---
EXAMINATION TYPE: XR chest 2V DATE OF EXAM: 08/16/2023 COMPARISON: None INDICATION: Cough TECHNIQUE: Frontal and lateral views of the chest are obtained. FINDINGS: The heart size is normal. The pulmonary vasculature is normal. The lungs are clear. IMPRESSION: 1. No acute pulmonary process.
== END | disposition home or self-care (01) ==
LOC: RADXRMAIN 12:13
PROVIDERS: ATTEND Family Medicine
DX: R05.9 Cough, unspecified (principal)
CPT/HCPCS: 71046

== ENCOUNTER → 2023-08-20 | Outpatient (CLI) | payer MEDICAID ==
--- NOTE | 2023-08-20 14:50 | P.GSCN ---
History of Present Illness Consult date: 08/20/23 Reason for Consult: nipple discharge Requesting physician: Letha Conroy History of present illness: Bin is a 57 year old female seen in consultation for Dr. Conroy. She had a bilateral mammogram on 08-26-23 which was BIRAD 1. She states about 6 weeks ago she noted some clear discharge form her left breast. It happened several times after that. When she touched it it shot across the room. It still happens after showers. She cannot tell which duct it is coming from. She is not complaining of any lumps masses or nodules of concern in either breast. She has not noted any blood in the discharge. It is never happened before this. Not noted any pain. She has not had any recent trauma or infection in the breast. She is never had any surgery on her breast. Caffeine: 1 up/day nicotine: none chocolate: occasional BCP: for 6 years hormones: none Familiy History: mother: breast; of this at 73 brother: liver cancer father: colon and lung cancer maternal grandmother: colon cancer Paternal aunt: Breast cancer Hormonal history: Menarche:17 M1, breast fed: no, age at first : 20 Menopause: IUD no period for 5 years, about 51 Surgical history: Left foot Gallbladder Gastric sleeve bypass Medical history: asthma anxiety depression panic HTN Social history: Nicotine: Negative Alcohol: Occasional Drugs: Negative Review of Systems - Constitutional Denies fever, Denies weight loss - EENT EENT Comment(s): glaucoma and cataracts Ears: deny: decreased hearing, tinnitus Ears, nose, mouth and throat: Denies dysphagia - Breasts bilateral: as per HPI - Cardiovascular Reports shortness of breath - Respiratory Respiratory Comment(s): asthma, sleep apnea on a CPAP machine Reports cough - Gastrointestinal Gastrointestinal Comment(s): IBS Reports diarrhea - Genitourinary Genitourinary: Denies dysuria, Denies hematuria Menstruation: Reports postmenopausal - Musculoskeletal Reports myalgias - Integumentary Denies rash, Denies unusual bruising - Neurological Reports headaches, Denies syncope - Psychiatric Reports anxiety, Reports depression - Endocrine Reports fatigue, Reports weight change - Allergic/Immunologic Reports seasonal allergies Past Medical History Past Medical History: Asthma, Cancer, Eye Disorder, GERD/Reflux, Hypertension, Osteoarthritis (OA), Sleep Apnea/CPAP/BIPAP Additional Past Medical History / Comment(s): kidney stone, CERVICAL CANCER SURGICALLY TREATED 2018 History of Any Multi-Drug Resistant Organisms: None Reported Past Surgical History: Bariatric Surgery, Cholecystectomy, Orthopedic Surgery Additional Past Surgical History / Comment(s): oral surgery, vertical sleeve, left foot surgery, GALLBLADDER REMOVAL, KIDNEY SURGERY AND LITHOTRIPSY, BASAL CELL CANCER REMOVAL FROM FACE, GASTRIC SLEEVE 2011, - Sexual Orientation/Gender Identity What was your sex assigned at ?: Female Preferred Pronoun: She/Her/Hers Do you identify as transgender: No Do you think of your sexual orientation as: Straight/Heterosexual Past Psychological History: Anxiety, Panic Disorder Smoking Status: Never smoker Past Alcohol Use History: None Reported Past Drug Use History: None Reported Medications and Allergies Home Medications Medication Instructions Recorded Confirmed Type ALPRAZolam [Xanax] 0.5 mg PO TID PRN 01/07/14 08/20/23 History Venlafaxine HCl ER [Effexor Xr] 150 mg PO DAILY 01/07/14 08/20/23 History Albuterol Sulfate [Proair 90 mcg INHALATION DIRECTED PRN 07/22/23 08/20/23 History Respiclick] Metoprolol Succinate (ER) [Toprol 50 mg PO DAILY 07/22/23 08/20/23 History Xl] Omeprazole 20 mg PO BID 07/22/23 08/20/23 History Venlafaxine HCl [Effexor] See Rx Instructions .ROUTE .COMPLEX 07/22/23 08/20/23 History amLODIPine [Norvasc] 5 mg PO DAILY 07/22/23 08/20/23 History Allergies Allergy/AdvReac Type Severity Reaction Status Date / Time eucalyptus Allergy Dyspnea Verified 08/20/23 14:26 pregabalin [From Lyrica] AdvReac Severe Swelling Unverified 08/20/23 14:26 cat dander AdvReac Anaphylaxis Unverified 08/20/23 14:26 kiwi AdvReac Swelling Unverified 08/20/23 14:26 pineapple AdvReac Swelling Unverified 08/20/23 14:26 Surgical - Exam Vital Signs Temp Pulse Resp BP Pulse Ox 98.2 F 84 16 124/80 97 08/20/23 14:28 08/20/23 14:28 08/20/23 14:28 08/20/23 14:28 08/20/23 14:28 - General no distress - Eyes normal ocular movement - ENT no hearing loss - Neck trachea midline - Respiratory normal respiratory effort, clear to auscultation - Cardiovascular Rhythm: regular Heart Sounds: normal: S1, S2 - Integumentary normal turgor - Neurologic no disoriented, no combative - Musculoskeletal normal gait - Psychiatric oriented to time, oriented to person, oriented to place, speech is normal, memory intact Breast Exam: BRA: 44DD Inspection: Left breast larger than right breast, bilateral grade 3 ptosis, no nipple discharge today Palpation: Right breast: Multi positional exam no dominant masses or nodules of concern Right axilla: No adenopathy of concern Left breast: Multi positional exam no dominant masses or nodules of concern Left axilla: No adenopathy of concern On today's examination there is no nipple discharge from either breast Results Bilateral mammogram 08-25-2022 benign BI-RADS 1 Assessment and Plan Assessment: Impression: Fibrocystic breast changes Asymmetry of the breast left breast larger than right breast Left clear nipple discharge Plan: As there is nothing on today's examination to further evaluate we would recommend an MRI Follow-up after MRI If MRI cannot be obtained secondary to insurance purposes we would recommend an ultrasound of the left breast with attention to the post nipple and areolar area If patient notes discharge prior to her next appointment would asked that she come in when she is having the discharge CC: Dr. Elizabet Amaya
[2023-08-20 15:03] VITALS: BP 124/80; PULSE 84; RESP 16; TEMP 98.2
== END ==
LOC: WWCWWP 13:59
PROVIDERS: ATTEND Surgery
DX: R92.8 Other abnormal and inconclusive findings on diagnostic imaging of breast (principal); N64.52 Nipple discharge; N60.11 Diffuse cystic mastopathy of right breast; N64.89 Other specified disorders of breast; Z80.3 Family history of malignant neoplasm of breast; Z91.09 Other allergy status, other than to drugs and biological substances; Z88.8 Allergy status to other drugs, medicaments and biological substances; Z91.018 Allergy to other foods

== ENCOUNTER → 2023-09-08 | Outpatient (CLI) | payer MEDICAID ==
--- NOTE | 2023-09-08 13:19 | BMR ---
EXAM DATE: 09/08/2023 EXAM DESCRIPTION: MRI-Breast Bilat (W/WO Contrast) INDICATION: Left nipple discharge. COMPARISON: Comparison was made to prior relevant imaging available in PACS. TECHNIQUE: Multiplanar multisequence breast MRI was performed prior to and after administration of 9 cc mL of Gadavist intravenously. Post processing was performed utilizing a [employer] workstation. The exam was performed at the [facility] and was provided to review by [facility]. Please note that evaluation of the anterior breasts is slightly limited due to size of the breast. FINDINGS: There is mild, symmetric background parenchymal enhancement in breasts that are composed of almost entirely fatty tissue. RIGHT BREAST: Review of the dynamic contrast enhanced series shows no rapidly enhancing masses, suspicious enhancement patterns or other abnormalities. The T2 weighted series show no abnormality. LEFT BREAST: Review of the dynamic contrast enhanced series shows no rapidly enhancing masses, suspicious enhancement pattern or other abnormalities. The T2 weighted series show no abnormality. IMPRESSION: Right breast: BI-RADS Category 1-negative. No MRI evidence of malignancy. Recommendation: MRI screening in 1 year Left breast: BI-RADS Category 1-negative. No MR evidence of malignancy. Recommendation: MRI screening in 1 year. Given provided history of left breast nipple discharge, depending on the clinical level of suspicion and characteristics of the nipple discharge (for example bloody, serous, spontaneous), surgical consult to discuss further management may be considered. OVERALL ASSESSMENT- BI-RADS 1 MTDD
== END | disposition home or self-care (01) ==
LOC: RADMRIMAIN 06:00
PROVIDERS: ATTEND Surgery
DX: N64.52 Nipple discharge (principal); R68.89 Other general symptoms and signs
CPT/HCPCS: 77049; A9585

== ENCOUNTER → 2024-02-02 | Outpatient (CLI) | payer MEDICAID ==
--- NOTE | 2024-02-02 19:18 | MR ---
EXAMINATION TYPE: MR cspine/lspine wo con DATE OF EXAM: 02/02/2024 6:32 PM CLINICAL INDICATION: Female, 58 years old with history of M54.50 Lumbago; , Neck and lower back pain, headaches, BLE radiculopathy. COMPARISON: 06/26/2016 TECHNIQUE: Multi planar, multi sequence imaging was performed utilizing: T1-weighted, T2-weighted, a nd turbo inversion recovery imaging of the cervical and lumbar spine. MR contrast: IV Contrast: None. FINDINGS: CERVICAL: Alignment: The cervical vertebral bodies have preserved heights. Alignment is within normal limits gi june patient positioning. Bones: Scattered Modic endplate changes with osteophytes and disc space narrowing. Multilevel degener ative disc disease is noted and most pronounced at the C5-C6 vertebral levels. Cord: The spinal cord is unremarkable with regards to their signal intensity and morphology. Discs: Intervertebral disc signal is maintained. Lumbar spine C2-C3: No significant disc pathology. The spinal canal is patent. No neural foraminal stenosis. C3-C4: No significant disc pathology. The spinal canal is patent. No neural foraminal stenosis. C4-C5: No significant disc pathology. The spinal canal is patent. No neural foraminal stenosis. C5-C6: A disc osteophyte complex is present with mild spinal canal stenosis. Bilateral facet and unc overtebral joint arthropathy are present with moderate right and mild left neural foraminal stenosis. C6-C7: No significant disc pathology. The spinal canal is patent. No neural foraminal stenosis. C7-T1: No significant disc pathology. The spinal canal is patent. No neural foraminal stenosis. Other: None. LUMBAR: Alignment: The lumbar vertebral bodies have preserved heights and alignment. Cord: The conus medullaris and the distal spinal cord appear unremarkable with regards to their signa l intensity and morphology. Bones/Discs: Mild degeneration changes throughout the spine with osteophyte formation and facet joint arthropathy. Multilevel disc desiccation is present. Mild reactive edema at the adjoining endplates of T11-T12. T12-L1: No evidence of significant spinal canal stenosis or neural foraminal stenosis. L1-L2: No evidence of significant spinal canal stenosis or neural foraminal stenosis. L2-L3: No evidence of significant spinal canal stenosis or neural foraminal stenosis. L3-L4: No evidence of significant spinal canal stenosis or neural foraminal stenosis. L4-L5: No evidence of significant spinal canal stenosis or neural foraminal stenosis. L5-S1: The disc is rounded posterior morphology without significant spinal canal stenosis. Facet nati nt arthropathy with mild neural foraminal stenosis. No significant spinal canal or neural foraminal stenosis in the remainder of the visualized levels. Other findings: None. IMPRESSION: 1. Cervical spine degeneration worse at C5-6 with moderate right and left neural foraminal stenosis. This is mildly progressed from prior. 2. No evidence for significant spinal canal stenosis in the cervical spine or lumbar spine. 3. No definitive evidence of disc herniation in the cervical or lumbar spine. 4. Mild to moderate disc degeneration with associated osteoarthritic changes. [facility], , 02/02/2024 7:15 PM
== END | disposition home or self-care (01) ==
LOC: RADMRIMAIN 17:26
PROVIDERS: ATTEND Family Medicine
DX: M54.50 Low back pain, unspecified
CPT/HCPCS: 72141; 72148

== ENCOUNTER → 2024-02-25 | Outpatient (CLI) | payer MEDICAID ==
--- NOTE | 2024-02-25 09:27 | XR ---
EXAMINATION TYPE: XR lumbosacral spine min 4V DATE OF EXAM: 02/25/2024 CLINICAL HISTORY: pain COMPARISON: NONE TECHNIQUE: Frontal, lateral, and oblique images of the lumbar spine are obtained. FINDINGS: There are 5 lumbar type vertebral bodies identified. The lumbar spine shows satisfactory alignment without evidence of acute fracture or dislocation. Vertebral body heights are within normal limits. Disc spaces are well preserved. The overlying soft tissue appears unremarkable. IMPRESSION: No acute fracture or dislocation is seen in the lumbar spine.ICD 10 NO FRACTURE, INITIAL EVALUATION [facility], , 02/25/2024 8:27 AM
--- NOTE | 2024-02-25 11:50 | CT ---
EXAMINATION TYPE: CT lumbar spine wo con CT DLP: 1522.8 mGycm, Automated exposure control for dose reduction was used. DATE OF EXAM: 02/25/2024 7:17 AM COMPARISON: Lumbosacral spine radiograph 02/25/2024, MR C-spine/L spine 02/02/2024, 06/26/2016, 015. CLINICAL INDICATION:Female, 58 years old with history of M54.51 Lumbago M51.16; H, Lumbago TECHNIQUE: Multiple axial images were obtained from the midportion of T11 through the sacroiliac nati nts. Soft tissue and bone windows in coronal and sagittal planes were obtained and reviewed. Contrast used: none. Oral contrast used: none. FINDINGS: Alignment: There are 5 lumbar type vertebral bodies. Minimal grade 1 anterolisthesis of L5 on S1. No pars defects. Bone: No evidence of fracture is identified. Mild degenerative changes of the bilateral SI joints wi th vacuum disease. Discs: Multilevel Schmorl's nodes of the upper lumbar spine and superior endplates. T12-L1: No spinal canal or neural foraminal stenosis is identified. L1-L2: No spinal canal or neural foraminal stenosis is identified. L2-L3: No spinal canal or neural foraminal stenosis is identified. L3-L4: No spinal canal or neural foraminal stenosis is identified. L4-L5: Broad-based disc bulge without significant central canal stenosis. Advanced bilateral facet ar thropathy. No significant neural foraminal stenosis. L5-S1: Minimal grade 1 anterolisthesis. No significant central canal stenosis. Advanced bilateral fac et arthropathy. No significant neural foraminal stenosis. Other: Cholecystectomy clips. Partial visualization of postsurgical changes of the stomach. Nonobstru ctive punctate bilateral renal calculi. IMPRESSION: 1. No evidence for spinal fracture. 2. Minimal multilevel degenerative disc disease with moderate facet arthropathy of the lower lumbar s pine. 3. Minimal grade 1 anterolisthesis of L5 on S1 without pars defects. 4. Nonobstructive punctate bilateral renal calculi. [facility], , 02/25/2024 11:48 AM
== END | disposition home or self-care (01) ==
LOC: RADCTMAIN 07:01
PROVIDERS: ATTEND Neurological Surgery
CPT/HCPCS: 72110; 72131

== ENCOUNTER 2024-02-27 19:45 | Observation (INO) | payer MEDICAID ==
[2024-02-27 20:11] LABS: Basophils # (A) 0.1 k/uL (0-0.2); Basophils % (A) 1 %; Eosinophils # (A) 0.1 k/uL (0-0.7); Eosinophils % (A) 1 %; HCT 42.4 % (34.0-46.0); HGB 14.2 gm/dL (11.4-16.0); Lymphocytes # (A) 3.7 k/uL (1.0-4.8); Lymphocytes % (A) 48 %; MCH 30.8 pg (25.0-35.0); MCHC 33.4 g/dL (31.0-37.0); MCV 92.1 fL (80.0-100.0); Mean Platelet Volume 6.6; Monocytes # (A) 0.4 k/uL (0-1.0); Monocytes % (A) 5 %; Neutrophils # (A) 3.3 k/uL (1.3-7.7); Neutrophils % (A) 43 %; Platelet Count 256 k/uL (150-450); RDW 13.2 % (11.5-15.5); WBC 7.7 k/uL (3.8-10.6)
--- NOTE | 2024-02-27 20:13 | ED ---
General Adult HPI - General Chief complaint: Chest Pain Stated complaint: Chest Pain Time Seen by Provider: 02/27/24 19:56 Source: patient Mode of arrival: ambulatory Limitations: no limitations - History of Present Illness Initial comments: Dictation was produced using [employer] dictation software. please excuse any grammatical, word or spelling errors. Chief Complaint: 58-year-old female presents to the emergency department for chest pain History of Present Illness: Patient is 58-year-old female she has past medical hist hypertension. States that she is here for chest pain that started yesterday states that it is a pressure in her substernal chest that radiates down both upper extremities. States that it started while she was eating. Denies any pleurisy. No shortness of breath. States that she did have some nausea diaphoresis. Patient reports that she has family history of heart conditions in her grandparents. States that she does have some mild active pressure in her chest. Patient takes 845 mg of aspirin prior to arrival The ROS documented in this emergency department record has been reviewed and confirmed by me. Those systems with pertinent positive or negative responses have been documented in the HPI. All other systems are other negative and/or noncontributory. - Related Data Home Medications Medication Instructions Recorded Confirmed ALPRAZolam [Xanax] 0.5 mg PO TID PRN 01/07/14 08/20/23 Venlafaxine HCl ER [Effexor Xr] 150 mg PO DAILY 01/07/14 08/20/23 Albuterol Sulfate [Proair 90 mcg INHALATION DIRECTED PRN 07/22/23 08/20/23 Respiclick] Metoprolol Succinate (ER) [Toprol 50 mg PO DAILY 07/22/23 08/20/23 Xl] Omeprazole 20 mg PO BID 07/22/23 08/20/23 Venlafaxine HCl [Effexor] See Rx Instructions .ROUTE .COMPLEX 07/22/23 08/20/23 amLODIPine [Norvasc] 5 mg PO DAILY 07/22/23 08/20/23 Allergies Allergy/AdvReac Type Severity Reaction Status Date / Time eucalyptus Allergy Dyspnea Verified 02/27/24 19:54 pregabalin [From Lyrica] AdvReac Severe Swelling Verified 02/27/24 19:54 cat dander AdvReac Anaphylaxis Verified 02/27/24 19:54 kiwi AdvReac Swelling Verified 02/27/24 19:54 pineapple AdvReac Swelling Verified 02/27/24 19:54 Review of Systems ROS Statement: Those systems with pertinent positive or pertinent negative responses have been documented in the HPI. ROS Other: All systems not noted in ROS Statement are negative. Past Medical History Past Medical History: Asthma, Cancer, Eye Disorder, GERD/Reflux, Hypertension, Osteoarthritis (OA), Sleep Apnea/CPAP/BIPAP Additional Past Medical History / Comment(s): kidney stone, CERVICAL CANCER SURGICALLY TREATED 2018 History of Any Multi-Drug Resistant Organisms: None Reported Past Surgical History: Bariatric Surgery, Cholecystectomy, Orthopedic Surgery Additional Past Surgical History / Comment(s): oral surgery, vertical sleeve, left foot surgery, GALLBLADDER REMOVAL, KIDNEY SURGERY AND LITHOTRIPSY, BASAL CELL CANCER REMOVAL FROM FACE, GASTRIC SLEEVE 2012, Past Psychological History: Anxiety, Panic Disorder Smoking Status: Never smoker Past Alcohol Use History: None Reported Past Drug Use History: None Reported General Exam - General Exam Comments Initial Comments: PHYSICAL EXAM: General Impression: Alert and oriented x3, not in acute distress HEENT: Normocephalic atraumatic, extra-ocular movements intact, pupils equal and reactive to light bilaterally, mucous membranes moist. Cardiovascular: Heart regular rate and rhythm Chest: Able to complete full sentences, no retractions, no tachypnea Abdomen: abdomen soft, non-tender, non-distended, no organomegaly Musculoskeletal: Pulses present and equal in all extremities, no peripheral edema Motor: no focal deficits noted Neurological: CN II-XII grossly intact, no focal motor or sensory deficits noted Skin: Intact with no visualized rashes Psych: Normal affect and mood Limitations: no limitations Course Vital Signs 02/27/24 02/27/24 02/27/24 19:53 20:06 20:43 Temperature 98.5 F Pulse Rate 85 80 69 Respiratory 16 18 16 Rate Blood Pressure 166/103 156/100 137/85 O2 Sat by Pulse 99 98 95 Oximetry EKG Findings - EKG Comments: EKG Findings:: My EKG interpretation: Ventricular rate 79, sinus rhythm,. 167, QRS 90, QTc 4 1. No [place] prolongation, no QTC prolongation, no ST or T-wave changes noted. Overall, this EKG is unremarkable Medical Decision Making - Medical Decision Making Was pt. sent in by a medical professional or institution (BRENT Sanchez, BEHAVIORAL HEALTH WORKER, urgent care, hospital, or residential...) When possible be specific @ -No Did you speak to anyone other than the patient for history (EMS, parent, family, police, friend...)? What history was obtained from this source @ -No Did you review nursing and triage notes (agree or disagree)? Why? @ -I reviewed and agree with nursing and triage notes Were old charts reviewed (outside hosp., previous admission, EMS record, old EKG, old radiological studies, urgent care reports/EKG's, residential records)? Report findings @ -No old charts were reviewed Differential Diagnosis (chest pain, altered mental status, abdominal pain women, abdominal pain men, vaginal bleeding, musculoskeletal, weakness, fever, dyspnea, syncope, headache, dizziness, GI bleed, back pain, seizure, CVA, palpatations, mental health)? @ -Differential Chest Pain: Stable Angina, Unstable Angina, STEMI, NSTEMI Aortic Dissection, Pneumothorax, Musculoskeletal, Esophageal Spasm GERD, Cholecystitis, Pancreatitis, Zoster, this is not meant to be an all-inclusive list. EKG interpreted by me (3pts min.). @ -See above X-rays interpreted by me (1pt min.). @ -Chest x-ray is nonacute CT interpreted by me (1pt min.). @ -None done U/S interpreted by me (1pt. min.). @ -None done What testing was considered but not performed or refused? (CT, X-rays, U/S, labs)? Why? @ -None What meds were considered but not given or refused? Why? @ -None Was smoking cessation discussed for >3mins.? @ -No Were there social determinants of health that impacted care today? How? (Homelessness, low income, unemployed, alcoholism, drug addiction, tra nsportation, low edu. Level, literacy, decrease access to med. care, fpc, rehab)? @ -No Was there de-escalation of care discussed even if they declined (Discuss DNR or withdrawal of care, Hospice)? DNR status @ -No What co-morbidities impacted this encounter? (DM, HTN, Smoking, COPD, CAD, Cancer, CVA, ARF, Chemo, Hep., AIDS, mental health diagnosis, sleep apnea, morbid obesity)? @ -Family history of cardiac disease, hypertension obesity age Was patient admitted / discharged? Hospital course, mention meds given and route, prescriptions, significant lab abnormalities, going to OR and other p ertinent info. @ -58-year-old female presents to the emergency department with chest pain concerning for acute coronary syndrome. Vital signs upon arrival are within acceptable limits. EKG is unremarkable. Laboratory evaluation obtained found to be within acceptable limits. Given patient's high risk features she will be admitted with consultation to cardiology. Case discussed with hospitalist for admission Did you discuss the management of the patient with other professionals (professionals i.e. , PA, BEHAVIORAL HEALTH WORKER, lab, RT, psych nurse, social psychologist, instrumentation fitter, teacher, air crew officer, lining caser)? Give summary @ -See above Was critical care preformed (if so, how long)? @ -No Undiagnosed new problem with uncertain prognosis? @ -No Drug Therapy requiring intensive monitoring for toxicity (Heparin, Nitro, Insulin, Cardizem)? @ -No Were any procedures done? @ -No Diagnosis/symptom? Acute, or Chronic, or Acute on Chronic? Uncomplicated (without systemic symptoms) or Complicated (systemic symptoms)? @ -Acute coronary syndrome Side effects of treatment? @ -No Exacerbation, Progression, or Severe Exacerbation? @ -No Poses a threat to life or bodily function? How? (Chest pain, [place], [place], pneumonia, PE, COPD, DKA, ARF, appy, cholecystitis, CVA, Diverticulitis, Homicidal, Suicidal, threat to staff... and all critical care pts) @ -yes - Lab Data Result diagrams: 02/27/24 20:00 02/27/24 20:00 Lab Results 02/27/24 02/27/24 02/27/24 Range/Units 20:00 20:00 20:00 WBC 7.7 (3.8-10.6) k/uL RBC 4.60 (3.80-5.40) m/uL Hgb 14.2 (11.4-16.0) gm/dL Hct 42.4 (34.0-46.0) % MCV 92.1 (80.0-100.0) fL MCH 30.8 (25.0-35.0) pg MCHC 33.4 (31.0-37.0) g/dL RDW 13.2 (11.5-15.5) % Plt Count 256 (150-450) k/uL MPV 6.6 Neutrophils % 43 % Lymphocytes % 48 % Monocytes % 5 % Eosinophils % 1 % Basophils % 1 % Neutrophils # 3.3 (1.3-7.7) k/uL Lymphocytes # 3.7 (1.0-4.8) k/uL Monocytes # 0.4 (0-1.0) k/uL Eosinophils # 0.1 (0-0.7) k/uL Basophils # 0.1 (0-0.2) k/uL PT 10.5 (10.0-12.5) sec INR 0.9 (<1.2) APTT 24.6 (22.0-30.0) sec Sodium 139 (137-145) mmol/L Potassium 3.9 (3.5-5.1) mmol/L Chloride 106 (98-107) mmol/L Carbon Dioxide 28 (22-30) mmol/L Anion Gap 5 mmol/L BUN 13 (7-17) mg/dL Creatinine 0.48 L (0.52-1.04) mg/dL Est GFR (CKD-EPI)AfAm >90 (>60 ml/min/1.73 sqM) Est GFR (CKD-EPI)NonAf >90 (>60 ml/min/1.73 sqM) Glucose 99 (74-99) mg/dL Calcium 9.9 (8.4-10.2) mg/dL Magnesium 2.1 (1.6-2.3) mg/dL Total Bilirubin 0.4 (0.2-1.3) mg/dL AST 27 (14-36) U/L ALT 25 (4-34) U/L Alkaline Phosphatase 86 (38-126) U/L Troponin I (0.000-0.034) ng/mL Total Protein 7.2 (6.3-8.2) g/dL Albumin 4.6 (3.5-5.0) g/dL 02/27/24 Range/Units 20:00 WBC (3.8-10.6) k/uL RBC (3.80-5.40) m/uL Hgb (11.4-16.0) gm/dL Hct (34.0-46.0) % MCV (80.0-100.0) fL MCH (25.0-35.0) pg MCHC (31.0-37.0) g/dL RDW (11.5-15.5) % Plt Count (150-450) k/uL MPV Neutrophils % % Lymphocytes % % Monocytes % % Eosinophils % % Basophils % % Neutrophils # (1.3-7.7) k/uL Lymphocytes # (1.0-4.8) k/uL Monocytes # (0-1.0) k/uL Eosinophils # (0-0.7) k/uL Basophils # (0-0.2) k/uL PT (10.0-12.5) sec INR (<1.2) APTT (22.0-30.0) sec Sodium (137-145) mmol/L Potassium (3.5-5.1) mmol/L Chloride (98-107) mmol/L Carbon Dioxide (22-30) mmol/L Anion Gap mmol/L BUN (7-17) mg/dL Creatinine (0.52-1.04) mg/dL Est GFR (CKD-EPI)AfAm (>60 ml/min/1.73 sqM) Est GFR (CKD-EPI)NonAf (>60 ml/min/1.73 sqM) Glucose (74-99) mg/dL Calcium (8.4-10.2) mg/dL Magnesium (1.6-2.3) mg/dL Total Bilirubin (0.2-1.3) mg/dL AST (14-36) U/L ALT (4-34) U/L Alkaline Phosphatase (38-126) U/L Troponin I 0.014 (0.000-0.034) ng/mL Total Protein (6.3-8.2) g/dL Albumin (3.5-5.0) g/dL Disposition Clinical Impression: Chest pain Disposition: ADMITTED IP TO THIS HOSP Condition: Fair Referrals: Letha Conroy MD [Primary Care Provider] - 1-2 days Decision Time: 21:06
[2024-02-27 20:19] LABS: INR 0.9 (<1.2); Partial Thromboplastin Time 24.6 sec (22.0-30.0); Prothrombin Time 10.5 sec (10.0-12.5)
[2024-02-27 20:37] LABS: ALT 25 U/L (4-34); AST 27 U/L (14-36); African American GFR (CKD) >90 (>60 ml/min/1.73 sqM); Albumin 4.6 g/dL (3.5-5.0); Alkaline Phosphatase 86 U/L (38-126); Anion Gap 5 mmol/L; Blood Urea Nitrogen 13 mg/dL (7-17); Calcium 9.9 mg/dL (8.4-10.2); Carbon Dioxide 28 mmol/L (22-30); Chloride 106 mmol/L (98-107); Glucose 99 mg/dL (74-99); Magnesium 2.1 mg/dL (1.6-2.3); Non-African American GFR(CKD) >90 (>60 ml/min/1.73 sqM); Potassium 3.9 mmol/L (3.5-5.1); Sodium 139 mmol/L (137-145); Total Bilirubin 0.4 mg/dL (0.2-1.3); Total Protein 7.2 g/dL (6.3-8.2)
--- NOTE | 2024-02-27 20:42 | XR ---
EXAMINATION TYPE: XR chest 2V DATE OF EXAM: 02/27/2024 8:16 PM COMPARISON: Chest radiographs from 08/16/2023 CLINICAL INDICATION: Female, 58 years old with history of Chest Pain; [facility] TECHNIQUE: XR chest 2V Frontal and lateral views of the chest. FINDINGS: Lungs/Pleura: There is no evidence of pleural effusion, focal consolidation, or pneumothorax. Pulmonary vascularity: Unremarkable. Heart/mediastinum: Cardiomediastinal silhouette is unremarkable. Musculoskeletal: No acute osseous pathology. Other findings: None IMPRESSION: No acute cardiopulmonary disease/process. [facility], , 02/27/2024 8:39 PM
[2024-02-27] MEDS ORDERED: NITROGLYCERIN SL TABS 0.4 MG TAB SUBLINGUAL PRN (21:03)
[2024-02-28] MEDS ORDERED: ALPRAZolam 0.5 MG TAB PO PRN ×2 (00:50→07:55)
--- NOTE | 2024-02-28 00:57 | P.HPIM ---
History of Present Illness H&P Date: 02/27/24 Chief Complaint: "I had severe chest pain" Bin is a 58 y o female patient with hypertension presenting with chest pain and arm pain. She reported that the chest pain began yesterday and was severe on Wednesday night while she was just eating dinner. The pain was described as feeling heavy and likened to being punched in the chest, radiating to the sides. Associated symptoms included sweating and nausea, though she denied any vomiting, trouble breathing, dizziness, or lightheadedness. denies any previous heart attacks, lung issues, or blood clots. There was no re cent travel or involvement in physical activity that could have triggered this episode. Bin took aspirin for pain relief and was instead driven by her neighbor. she has never had a stress test or any other cardiac workup in the past , no recent hospital stay or travel , no history of blood clots Bin lives independently and denies any use of tobacco, street drugs, or heavy alcohol consumption. chronic medical problems High blood pressure. No documented history of diabetes, stroke, or hyperlipidemia noted. Medical conditions appear stable with no recent interventions reported. . review of systems Pertinent positives as noted in HPI. All other systems were reviewed and are negative on exam Constitutional: No acute distress, conversant, pleasant Eyes: Anicteric sclerae, moist conjunctiva, Pupils equal round reactive to light ENMT: NC/AT Oropharynx clear, no erythema, or exudates Neck: Supple, no masses, or JVD No carotid bruits No thyromegaly Lungs: Clear to auscultation Clear to percussion Normal respiratory effort, no accessory muscle use Cardiovascular: Heart regular in rate and rhythm, No murmurs, gallops, or rubs No peripheral edema Abdominal: Soft Nontender, no guarding, rebound or rigidity Abdomen moving with respiration Normoactive bowel sounds Extremities: No digital cyanosis No clubbing Pedal pulses intact and symmetrical Radial pulses intact and symmetrical No calf tenderness Psychiatric: Alert and oriented to person, place and time Appropriate affect fair judgement Neuro Muscles Strength 5/5 in all 4 extremities Sensation to light touch grossly present throughout Cranial nerves II-XII grossly intact Past Medical History Past Medical History: Asthma, Cancer, Eye Disorder, GERD/Reflux, Hypertension, Osteoarthritis (OA), Sleep Apnea/CPAP/BIPAP Additional Past Medical History / Comment(s): kidney stone, CERVICAL CANCER SURGICALLY TREATED 2018 History of Any Multi-Drug Resistant Organisms: None Reported Past Surgical History: Bariatric Surgery, Cholecystectomy, Orthopedic Surgery Additional Past Surgical History / Comment(s): oral surgery, vertical sleeve, left foot surgery, GALLBLADDER REMOVAL, KIDNEY SURGERY AND LITHOTRIPSY, BASAL CELL CANCER REMOVAL FROM FACE, GASTRIC SLEEVE 2011, Past Anesthesia/Blood Transfusion Reactions: No Reported Reaction Past Psychological History: Anxiety, Panic Disorder Smoking Status: Never smoker Past Alcohol Use History: Rare Past Drug Use History: None Reported Medications and Allergies Home Medications Medication Instructions Recorded Confirmed Type ALPRAZolam [Xanax] 0.5 mg PO TID PRN 01/07/14 08/20/23 History Venlafaxine HCl ER [Effexor Xr] 150 mg PO DAILY 01/07/14 08/20/23 History Albuterol Sulfate [Proair 90 mcg INHALATION DIRECTED PRN 07/22/23 08/20/23 History Respiclick] Metoprolol Succinate (ER) [Toprol 50 mg PO DAILY 07/22/23 08/20/23 History Xl] Omeprazole 20 mg PO BID 07/22/23 08/20/23 History Venlafaxine HCl [Effexor] See Rx Instructions .ROUTE .COMPLEX 07/22/23 08/20/23 History amLODIPine [Norvasc] 5 mg PO DAILY 07/22/23 08/20/23 History Allergies Allergy/AdvReac Type Severity Reaction Status Date / Time eucalyptus Allergy Dyspnea Verified 02/27/24 19:54 pregabalin [From Lyrica] AdvReac Severe Swelling Verified 02/27/24 19:54 cat dander AdvReac Anaphylaxis Verified 02/27/24 19:54 kiwi AdvReac Swelling Verified 02/27/24 19:54 pineapple AdvReac Swelling Verified 02/27/24 19:54 Physical Exam Vitals: Vital Signs Temp Pulse Pulse Resp BP BP Pulse Ox 02/27/24 22:26 97.7 F 68 15 134/84 97 02/27/24 21:38 70 17 132/82 94 L 02/27/24 20:43 69 16 137/85 95 02/27/24 20:06 80 18 156/100 98 02/27/24 19:53 98.5 F 85 16 166/103 99 Intake and Output 10/02/27/24 02/28/24 14:59 22:59 06:59 Other: Weight 110.677 kg Results CBC & Chem 7: 02/27/24 20:00 02/27/24 20:00 Labs: Abnormal Lab Results - Last 24 Hours (Table) 02/27/24 Range/Units 20:00 Creatinine 0.48 L (0.52-1.04) mg/dL Assessment and Plan Assessment: 58-year-old female with hypertension coming in for sudden onset chest pain while eating dinner no cardiac history I discussed case with ED doctor and accepted the admission for atypical chest pain to rule out acute coronary syndrome with anticipated length of stay less than 2 midnights Atypical chest pain EKG normal sinus rhythm no acute ST changes Troponin negative continue to trend Nitro as needed for chest pain Aspirin 81 mg p.o. daily Check lipid panel check A1c check TSH Cardiology consult Continue to monitor vital signs Hypertension Continue amlodipine and metoprolol Blood work overall unremarkable Showing hemoglobin 14.3 white count 7.7 unremarkable Renal function unremarkable sodium 139 potassium 3.9, BUN 13 creatinine 0.4 Full code DVT prophylaxis Lovenox 40 mg subcu daily GI prophylaxis Protonix.
[2024-02-28] MEDS ORDERED: HEPARIN SODIUM 1,000 UN/ML (10ML VL) IV PRN (05:21)
[2024-02-28] MEDS: NITROGLYCERIN SL TABS 0.4 MG TAB SUBLINGUAL STA (05:32)
[2024-02-28] MEDS: HEPARIN SOD,PORK IN 0.45% NACL 25,000 UNIT in 0.45% NACL 1 250ML.BAG IV SCH (05:44)
[2024-02-28] MEDS: HEPARIN SODIUM 1,000 UN/ML (10ML VL) IV ONE ×2 (05:54→11:48)
[2024-02-28] MEDS ORDERED: HEPARIN SODIUM,PORCINE (1 ML) 2,500 UNIT in SODIUM CHLORIDE 0.9% 250 ML IRRIGATION PRN (07:00)
[2024-02-28] MEDS ORDERED: HEPARIN SODIUM,PORCINE 10,000 UNIT in SODIUM CHLORIDE 0.9% 1,000 ML IRRIGATION PRN (07:00)
[2024-02-28 07:13] LABS: Basophils % (A) 1 %; Eosinophils # (A) 0.1 k/uL (0-0.7); Eosinophils % (A) 1 %; HCT 41.3 % (34.0-46.0); HGB 13.6 gm/dL (11.4-16.0); Lymphocytes # (A) 3.4 k/uL (1.0-4.8); Lymphocytes % (A) 47 %; MCH 30.5 pg (25.0-35.0); MCV 92.5 fL (80.0-100.0); Mean Platelet Volume 6.9; Monocytes # (A) 0.3 k/uL (0-1.0); Monocytes % (A) 4 %; Neutrophils # (A) 3.2 k/uL (1.3-7.7); Neutrophils % (A) 44 %; Platelet Count 262 k/uL (150-450); RBC 4.47 m/uL (3.80-5.40); RDW 13.2 % (11.5-15.5); WBC 7.2 k/uL (3.8-10.6)
[2024-02-28 07:41] LABS: INR 1.1 (<1.2); Prothrombin Time 11.6 sec (10.0-12.5)
[2024-02-28] MEDS ORDERED: ALPRAZolam 0.25 MG TAB PO PRN (07:55)
[2024-02-28] MEDS ORDERED: NITROGLYCERIN SL TABS 0.4 MG TAB SUBLINGUAL PRN ×2 (07:55→12:47)
[2024-02-28] MEDS: ATORVASTATIN 80 MG TAB PO STA (08:28)
[2024-02-28] MEDS: ASPIRIN 325 MG TAB PO STA (08:28)
[2024-02-28] MEDS: METOPROLOL SUCCINATE (ER) 50 MG TAB.ER.24H PO SCH (08:28)
[2024-02-28] MEDS: amLODIPine 5 MG TAB PO SCH ×2 (08:28→20:40)
[2024-02-28] MEDS: PANTOPRAZOLE 40 MG TABLET PO SCH (08:28)
[2024-02-28] MEDS: SODIUM CHLORIDE 0.9% 1,000 ML in EMPTY BAG 1 BAG IV SCH ×2 (08:29→13:10)
[2024-02-28 08:41] LABS: Partial Thromboplastin Time 109.2 sec (22.0-30.0)
[2024-02-28 08:58] LABS: Chol/HDL Ratio 3.65 Ratio; LDL Cholesterol,Calculated 122.1 mg/dL (0.0-131.0)
[2024-02-28] MEDS ORDERED: ENOXAPARIN 40 MG/0.4 ML SYRINGE SQ SCH (09:00)
[2024-02-28] MEDS: IV FLUID CONTINUATION 1,000 ML IV ONE (10:55)
[2024-02-28] MEDS: MIDAZOLAM 2 MG/2 ML VIAL IVP ONE ×2 (11:00→11:48)
[2024-02-28] MEDS: LIDOCAINE 1% INJ 10MG/ML (20 ML MDV) SQ ONE (11:00)
[2024-02-28] MEDS: fentaNYL (PF) 50 MCG/ML 2 ML AMP IVP ONE (11:00)
[2024-02-28] MEDS: VERAPAMIL SYRINGE (5 MG/10 ML) INTRAARTER ONE (11:02)
--- NOTE | 2024-02-28 11:14 | P.CRDCN ---
History of Present Illness Consult date: 02/28/24 Consult reason: chest pain History of present illness: This is a 58-year-old female patient of Dr. Emmie Ireland with past medical history of hypertension, anxiety and depression, palpitations. We have been asked to evaluate the patient for chest pain. Patient states that she developed chest pain on Wednesday with it went away and came back yesterday. Pain was described as heaviness. She also had sweating and nausea. Pain is gone at this time. Blood pressure 147/91, heart rate 76, pulse ox 96% on room air. Discussed recommendations of cardiac catheterization and patient is agreeable to move forward. She is maintained on heparin drip. EKG: Sinus rhythm Chest x-ray: No acute process Laboratory studies: CBC within normal limits. Troponins negative x 2 followed by 0.044. Creatinine 0.48, potassium 3.9, magnesium 2.1. Triglycerides 159, cholesterol 212, LDL 122, HDL 58. Home cardiac medications: Amlodipine 5 mg at bedtime, Toprol-XL 50 mg daily. Event monitor 08/25 - 08/26/2022 revealed no atrial fibrillation, no pauses, no PVCs Echocardiogram performed in the office on 08/24/2022 revealed EF of 55%, mild concentric left ventricular hypertrophy, mild MR, mild TR. Review Of Systems: At the time of my exam: CONSTITUTIONAL: Denies fever or chills. HEENT: Denies blurred vision, vision changes, or eye pain. Denies hemoptysis CARDIOVASCULAR: Denies chest pain. Denies orthopnea. Denies PND. Denies palpitations RESPIRATORY: Denies shortness of breath. GASTROINTESTINAL: Denies abdominal pain. Denies nausea or vomiting. HEMATOLOGIC: Denies bleeding disorders. GENITOURINARY: Denies any blood in urine. SKIN: Denies puritis. Denies rash. Physical examination: Gen: This is a 58-year-old female in no acute distress VS: reviewed HEENT: Head is atraumatic, normocephalic. Pupils equal, round. Sclerae is anicteric. NECK: Supple. No JVD. LUNGS: Clear to auscultation. No wheezes or rhonchi. No intercostal retractions. HEART: Regular rate and rhythm. No murmur. ABDOMEN: Soft No tenderness. EXTREMITIES: No pedal edema. No calf tenderness. NEUROLOGICAL: Patient is awake, alert and oriented x3. Assessment: NSTEMI Hypertension Anxiety and depression Obstructive sleep apnea Plan: Resume patient's home cardiac medications Schedule patient for cardiac catheterization today with Dr. Emmie Moore Obtain 2-D echocardiogram and Doppler study to assess cardiac structure and function Further recommendations to follow based upon clinical course Thank you kindly for this consultation. Nurse practitioner note has been reviewed, I agree with documented findings and plan of care. Patient was seen and examined. Past Medical History Past Medical History: Asthma, Cancer, Eye Disorder, GERD/Reflux, Hypertension, Osteoarthritis (OA), Sleep Apnea/CPAP/BIPAP Additional Past Medical History / Comment(s): kidney stone, CERVICAL CANCER SURGICALLY TREATED 2017 History of Any Multi-Drug Resistant Organisms: None Reported Past Surgical History: Bariatric Surgery, Cholecystectomy, Orthopedic Surgery Additional Past Surgical History / Comment(s): oral surgery, vertical sleeve, left foot surgery, GALLBLADDER REMOVAL, KIDNEY SURGERY AND LITHOTRIPSY, BASAL CELL CANCER REMOVAL FROM FACE, GASTRIC SLEEVE 2011, Past Anesthesia/Blood Transfusion Reactions: No Reported Reaction Past Psychological History: Anxiety, Panic Disorder Smoking Status: Never smoker Past Alcohol Use History: Rare Past Drug Use History: None Reported Medications and Allergies Home Medications Medication Instructions Recorded Confirmed Type ALPRAZolam [Xanax] 0.5 mg PO TID PRN 01/07/14 02/28/24 History Venlafaxine HCl ER [Effexor Xr] 150 mg PO DAILY 01/07/14 02/28/24 History Metoprolol Succinate (ER) [Toprol 50 mg PO DAILY 07/22/23 02/28/24 History Xl] Omeprazole 20 mg PO BID 07/22/23 02/28/24 History amLODIPine [Norvasc] 5 mg PO HS 07/22/23 02/28/24 History ALPRAZolam [Xanax] 0.5 mg PO BID PRN 02/28/24 02/28/24 History Acetaminophen [Tylenol Arthritis] 1,300 mg PO BID@0700,1600 02/28/24 02/28/24 History Albuterol Sulfate [Ventolin HFA] 1 - 2 puff INHALATION RT-Q6H PRN 02/28/24 02/28/24 History Budesonide/Formoterol Fumarate 2 puff INHALATION RT-BID PRN 02/28/24 02/28/24 History [Symbicort 80-4.5 Mcg Inhaler] Ibuprofen [Motrin Ib] 800 mg PO BID@0700,1600 02/28/24 02/28/24 History Venlafaxine HCl ER [Effexor Xr] 37.5 mg PO DAILY 02/28/24 02/28/24 History Allergies Allergy/AdvReac Type Severity Reaction Status Date / Time pregabalin [From Lyrica] Allergy Severe Swelling Verified 02/28/24 08:25 cat dander Allergy Anaphylaxis Verified 02/28/24 08:25 eucalyptus Allergy Dyspnea Verified 02/28/24 08:25 kiwi Allergy Swelling Verified 02/28/24 08:25 pineapple Allergy Swelling Verified 02/28/24 08:25 Physical Exam Vitals: Vital Signs Temp Pulse Pulse Resp BP BP Pulse Ox 02/28/24 02:00 98.0 F 87 17 153/88 94 L 02/27/24 22:26 97.7 F 68 15 134/84 97 02/27/24 21:38 70 17 132/82 94 L 02/27/24 20:43 69 16 137/85 95 02/27/24 20:06 80 18 156/100 98 02/27/24 19:53 98.5 F 85 16 166/103 99 Intake and Output 02/27/24 02/28/24 02/28/24 22:59 06:59 14:59 Other: # Voids 1 Weight 110.677 kg Results 02/28/24 06:29 02/27/24 20:00 Cardiac Enzymes 02/27/24 02/27/24 02/27/24 Range/Units 20:00 20:00 23:14 AST 27 (14-36) U/L Troponin I 0.014 0.026 (0.000-0.034) ng/mL 02/28/24 Range/Units 04:14 AST (14-36) U/L Troponin I 0.044 H* (0.000-0.034) ng/mL Coagulation 02/27/24 Range/Units 20:00 PT 10.5 (10.0-12.5) sec APTT 24.6 (22.0-30.0) sec CBC 02/27/24 02/28/24 Range/Units 20:00 06:29 WBC 7.7 7.2 (3.8-10.6) k/uL RBC 4.60 4.47 (3.80-5.40) m/uL Hgb 14.2 13.6 (11.4-16.0) gm/dL Hct 42.4 41.3 (34.0-46.0) % Plt Count 256 262 (150-450) k/uL Comprehensive Metabolic Panel 02/27/24 Range/Units 20:00 Sodium 139 (137-145) mmol/L Potassium 3.9 (3.5-5.1) mmol/L Chloride 106 (98-107) mmol/L Carbon Dioxide 28 (22-30) mmol/L BUN 13 (7-17) mg/dL Creatinine 0.48 L (0.52-1.04) mg/dL Glucose 99 (74-99) mg/dL Calcium 9.9 (8.4-10.2) mg/dL AST 27 (14-36) U/L ALT 25 (4-34) U/L Alkaline Phosphatase 86 (38-126) U/L Total Protein 7.2 (6.3-8.2) g/dL Albumin 4.6 (3.5-5.0) g/dL Current Medications Generic Name Dose Route Start Last Admin Trade Name Freq PRN Reason Stop Dose Admin Alprazolam 0.5 mg 02/28/24 00:50 Alprazolam 0.5 Mg Tab PO TID PRN Anxiety Amlodipine Besylate 5 mg 02/28/24 09:00 Amlodipine 5 Mg Tab PO DAILY [facility] Aspirin 325 mg 02/28/24 09:00 Aspirin 325 Mg Tab PO DAILY [facility] Heparin Sodium (Porcine) 0 unit 02/28/24 05:21 Heparin Sodium 1,000 Un/Ml (10ml Vl) IV PER PROTOCOL PRN Low PTT Protocol Heparin Sodium/Sodium Chloride 250 mls @ 10.005 mls/hr 02/28/24 05:30 02/28/24 05:44 25,000 unit/ Sodium Chloride IV 9.04 units/kg/hr .Q24H MARY JANE 10.005 mls/hr Administration Protocol 9.04 UNITS/KG/HR Metoprolol Succinate 50 mg 02/28/24 09:00 Metoprolol Succinate (Er) 50 Mg Tab.Er.24h PO DAILY [facility] Nitroglycerin 0.4 mg 02/27/24 21:03 Nitroglycerin Sl Tabs 0.4 Mg Tab SUBLINGUAL Q5M PRN Chest Pain Pantoprazole Sodium 40 mg 02/28/24 09:00 Pantoprazole 40 Mg Tablet PO BID MARY JANE Intake and Output 02/27/24 02/28/24 02/28/24 22:59 06:59 14:59 Other: # Voids 1 Weight 110.677 kg 02/28/24 06:29 02/27/24 20:00
[2024-02-28] MEDS: IOPAMIDOL-370 200ML BTL INJ ONE (11:27)
[2024-02-28] MEDS: IOPAMIDOL-370 100ML BTL INJ ONE ×2 (11:27→12:43)
--- NOTE | 2024-02-28 11:39 | CA ---
Transthoracic Echo Report Name: Bin Morales Age: 58 Gender: F : 1965 Exam Date: 02/28/2024 09:06 Exam Location: [facility] Ht (in): 64 Wt (lb): 244 Ordering Physician: Anastasia Spangler Attending/Referring Phys: [id number], Crys Para Educator Jessica Dyer RDCS Procedure CPT: Indications: CP Cardiac Hx: Technical Quality: Fair Contrast 1: Total Dose (mL): Contrast 2: Total Dose (mL): MEASUREMENTS (Male / Female) Normal Values 2D ECHO LV Diastolic Diameter PLAX 4.3 cm 4.2 - 5.9 / 3.9 - 5.3 cm LV Systolic Diameter PLAX 2.8 cm IVS Diastolic Thickness 1.5 cm 0.6 - 1.0 / 0.6 - 0.9 cm LVPW Diastolic Thickness 1.1 cm 0.6 - 1.0 / 0.6 - 0.9 cm LV Relative Wall Thickness 0.6 RV Internal Dim ED PLAX 3.4 cm LA Volume 46.3 cm??? 18 - 58 / 22 - 52 cm??? LA Volume Index 20.2 cm???/m??? 16 - 28 cm???/m??? M-MODE Aortic Root Diameter MM 2.8 cm LA Systolic Diameter MM 3.7 cm LA Ao Ratio MM 1.4 AV Cusp Separation MM 2.1 cm DOPPLER AV Peak Velocity 123.1 cm/s AV Peak Gradient 6.1 mmHg AV Mean Velocity 83.1 cm/s AV Mean Gradient 3.2 mmHg AV Velocity Time Integral 22.5 cm LVOT Peak Velocity 102.7 cm/s LVOT Peak Gradient 4.2 mmHg LVOT Velocity Time Integral 20.2 cm MV Area PHT 3.9 cm??? Mitral E Point Velocity 67.6 cm/s Mitral A Point Velocity 72.4 cm/s Mitral E to A Ratio 0.9 MV Deceleration Time 192.8 ms MV E' Velocity 7.0 cm/s Mitral E to MV E' Ratio 9.7 TR Peak Velocity 230.4 cm/s TR Peak Gradient 21.2 mmHg Right Ventricular Systolic Press 25.3 mmHg FINDINGS Left Ventricle Mildly increased left ventricular wall thickness. Left ventricular cavity size normal. Normal left ventricular systolic function with no obvious regional wall motion abnormalities. Left ventricular ejection fraction is estimated at 55-60 %. Grade 1 diastolic dysfunction. Right Ventricle Normal right ventricular function. Mild right ventricular dilatation. Right ventricular systolic pressure within normal limits. Right Atrium Normal right atrial size. Left Atrium Normal left atrial size. Mitral Valve Structurally normal mitral valve. Mitral annular calcification. Trace mitral regurgitation. Aortic Valve Trileaflet aortic valve. No aortic valve stenosis or regurgitation. Tricuspid Valve Structurally normal tricuspid valve. Mild tricuspid regurgitation. Pulmonic Valve Structurally normal pulmonic valve. Pericardium No pericardial effusion. Aorta Normal size aortic root and proximal ascending aorta. CONCLUSIONS Normal LV function Previewed by: Dr. Newton Moore MD (Electronically Signed) Final Date: 28 February 2024 11:38
[2024-02-28] MEDS: CLOPIDOGREL 75 MG TAB PO ONE (11:46)
[2024-02-28] MEDS: NITROGLYCERIN 1000MCG/10ML SYRINGE INTRACORON ONE (12:36)
[2024-02-28] MEDS ORDERED: ATROPINE SULFATE 0.1 MG/ML 10ML SYRINGE IV PRN (12:47)
[2024-02-28] MEDS ORDERED: RX INFO: IV CONTRAST WAS GIVEN 1 EACH MISC MISCELLANE PRN (12:47)
[2024-02-28] MEDS ORDERED: MAG HYDROX/AL HYDROX/SIMETH 30 ML CUP PO PRN (12:47)
--- NOTE | 2024-02-28 12:50 | P.PCN ---
Date of Procedure: 02/28/24 Operative Findings: PERCUTANEOUS CORONARY INTERVENTION Performing physician Freddie Chow M.D. Procedure Performed: 1. Successful stenting of the mid LCx using 2.75 x 12 Xience drug-eluting stent with an excellent angiographic results. 2. Adjunctive use of IVUS Indication: Acute non-ST elevation myocardial infarction Approach: Right radial art Complications: None Level of Sedation: Moderate with a sedation length of 30 minutes Procedure Discussion: Please refer to diagnostic heart catheterization was performed earlier today. Anticoagulation was initiated using heparin with continuous ACT monitoring. Subsequently I did engage the left main using JL 3.0 guiding catheter. I did wire the LCx using a whisper wire. Intravascular ultrasound was performed and showed a diameter around 2.75 mm. Predilatation was performed using 2.5 mm balloon before a deployed 2.75 x 12 mm stent where the stent was positioned under fluoroscopy guidance and deployed under fluoroscopy guidance. Final angiogram showed excellent angiographic results and the procedure was completed with no complication Postprocedure Management: 1. Dual antiplatelet therapy using aspirin and Plavix for 12 2. Aggressive cholesterol control 3. Risk factors modification
--- NOTE | 2024-02-28 13:56 | P.PN ---
Subjective Progress Note Date: 02/28/24 58 year old F with PMH of Asthma, GERD, HTN, sleep apnea, cervical CA, anxiety presented to the ED for chest pain that started yesterday associated with sweating and nausea. In the ED she underwent extensive evaluation. BP 166/103, HR 85, T 98.5, RR 16, 99% on RA. CBC, Coag panel, CMP significant for Cr 0.48. Troponins 0.014, 0.026, 0.044 with EKG showing sinus rhythm with Q wave in V3 and V4. She was started on a heparin drip and admitted for further workup and management. 02/27 Patient was seen and examined in the morning. Reports chest pain with ambulation. Plans for cardiac cath today. Maintained on heparin drip. CBC and Coag panel remarkable for APTT 109.2. Lipid panel T. Chol 212, TG 159, LDL 122.1. A1c 5.9. General: non toxic, no distress, appears at stated age Derm: warm, dry Head: atraumatic, normocephalic, symmetric Eyes: EOMI, no lid lag, anicteric sclera Mouth: no lip lesion, mucus membranes moist Cardiovascular: good distal perfusion in all 4 extremities Lungs: breathing comfortably, no accessory muscle use Ext: no gross muscle atrophy, no edema, no contractures Neuro: no focal neuro deficits Psych: Alert, oriented, appropriate affect Based on my assessment of this patient, this patient meets a high complexity level of care. NSTEMI: Continue heparin drip while monitoring daily coags. ASA 81 mg PO QD. Lipitor 80 mg PO QHS. Metoprolol as below. Obtain Echo. Plans for cardiac cath today. Telemetry monitoring. Asthma: Symbicort 2 INH BID. GERD: Prilosec 20 mg PO BID. HTN: Amlodipine 5 mg PO HS. Metoprolol 50 mg PO QD. Sleep apnea: CPAP QHS. Anxiety: Xanax 0.5 mg PO TID PRN. CODE STATUS: FULL CODE. DVT Prophylaxis: Heparin drip. GI Prophylaxis: Prilosec Designated medical POA if patient is not able to make medical decisions for themselves: I have reviewed the following cardiology clinical consultant notes: Cardiology note. I have reviewed the results of the following tests: CBC, Coag panel, Lipid, A1c I have ordered the following tests: I have discussed the care of this patient with the following independent historian: I have independently interpreted the following test below: I have discussed the management of this patient with the following physician: Objective - Vital Signs Vital signs: Vital Signs Temp 98.2 F 02/28/24 13:02 Pulse 76 02/28/24 07:00 Resp 16 02/28/24 13:17 BP 118/79 02/28/24 13:17 Pulse Ox 95 02/28/24 13:17 FiO2 Intake & Output 02/27/24 02/28/24 02/28/24 18:59 06:59 18:59 Intake Total 595.088 Balance 595.088 Weight 110.677 kg Intake: IV 550 Intake, IV Titration 45.088 Amount Heparin Sod,Pork in 0.45% 45.088 NaCl 25,000 unit In 0.45 % NaCl 1 250ml.bag @ 9.04 UNITS/KG/HR 10.005 mls/ hr IV .Q24H [facility] Rx#: [id number] Other: # Voids 1 - Labs CBC & Chem 7: 02/28/24 06:29 02/27/24 20:00 Labs: Abnormal Lab Results - Last 24 Hours (Table) 02/27/24 02/28/24 02/28/24 Range/Units 20:00 04:14 04:14 APTT (22.0-30.0) sec Creatinine 0.48 L (0.52-1.04) mg/dL Troponin I 0.044 H* (0.000-0.034) ng/mL Triglycerides 159.00 H (0.00-149.00) mg/dL Cholesterol 212.00 H (0.00-200.00) mg/dL 02/28/24 Range/Units 06:29 APTT 109.2 H* (22.0-30.0) sec Creatinine (0.52-1.04) mg/dL Troponin I (0.000-0.034) ng/mL Triglycerides (0.00-149.00) mg/dL Cholesterol (0.00-200.00) mg/dL
[2024-02-28] MEDS ORDERED: ACETAMINOPHEN TAB 325 MG TAB PO PRN (17:41)
[2024-02-28 20:21] VITALS: RESP 18
[2024-02-28] MEDS: ATORVASTATIN 80 MG TAB PO SCH (20:40)
[2024-02-28] MEDS: ZOLPIDEM 5 MG TAB PO PRN (21:03)
--- NOTE | 2024-02-28 21:36 | CC ---
CARDIAC CATHETERIZATION REPORT INDICATION: Acute non ST-segment elevation UT. PROCEDURE NOTE: After obtaining informed consent, left heart catheterization and coronary angiogram were performed via the right radial artery using standard Jose Antonio catheters. The patient tolerated the procedure well without any obvious immediate complications. The patient received moderate conscious sedation. Total sedation time was 17 minutes. Right radial artery access was obtained using Seldinger technique, 6-[place] sheath was placed. Catheters and wires were floated into the ascending aorta under fluoroscopic guidance. The patient received verapamil per protocol, was on IV heparin up until the time the patient came to the lab. Hence I decided not to give her any further heparin. FINDINGS: 1. HEMODYNAMICS: Left ventricular end-diastolic pressure is 16 to 18 mm. There is no significant gradient across the aortic valve. 2. LEFT VENTRICULOGRAM: Left ventriculogram is not performed. 3. ANGIOGRAPHIC DATA: a.Right coronary artery: Right coronary artery is a large dominant vessel and is free of significant stenosis. b.Left main coronary artery: Left main coronary artery is a normal-sized vessel and is free of stenosis. Divides into left anterior descending coronary artery and circumflex coronary artery. LAD and its branches are free of significant stenosis. Circumflex coronary artery is a nondominant vessel that shows a focal 95% stenosis. CONCLUSIONS: 95% stenosis involving circumflex coronary artery. PLAN: I am going to review the angiographic data with Dr. Chow, the on-call computer publisher for catheter based revascularization. MMALBERTO / OLEG: [id number] /
[2024-02-29 07:36] LABS: African American GFR (CKD) >90 (>60 ml/min/1.73 sqM); Non-African American GFR(CKD) >90 (>60 ml/min/1.73 sqM)
[2024-02-29 08:43] LABS: Basophils # (A) 0.04 X 10*3/uL (0.00-0.10); Basophils % (A) 0.5 %; Eosinophils # (A) 0.06 X 10*3/uL (0.04-0.35); Eosinophils % (A) 0.8 %; HCT 39.9 % (37.2-46.3); HGB 13.3 g/dL (12.0-15.0); Lymphocytes # (A) 2.88 X 10*3/uL (0.90-5.00); MCH 30.6 pg (27.0-32.0); MCHC 33.3 g/dL (32.0-37.0); MCV 91.7 FL (80.0-97.0); Mean Platelet Volume 9.6 FL (9.5-12.2); Monocytes # (A) 0.51 X 10*3/uL (0.20-1.00); Monocytes % (A) 6.6 %; NRBC Per 100 WBC 0 X 10*3/uL (0.00-0.01); Neutrophils # (A) 4.27 X 10*3/uL (1.80-7.70); Neutrophils % (A) 54.8 %; Platelet Count 254 X 10*3/uL (140-440); RBC 4.35 X 10*6/uL (4.10-5.20); RDW 13.1 % (11.5-14.5); WBC 7.78 X 10*3/uL (4.50-10.00)
--- NOTE | 2024-02-29 08:51 | P.PN ---
Subjective Progress Note Date: 02/29/24 Consult reason: chest pain History of present illness: This is a 58-year-old female patient of Dr. Emmie Moore with past medical history of hypertension, anxiety and depression, palpitations. We have been asked to evaluate the patient for chest pain. Patient states that she developed chest pain on Wednesday with it went away and came back yesterday. Pain was described as heaviness. She also had sweating and nausea. Pain is gone at this time. Blood pressure 147/91, heart rate 76, pulse ox 96% on room air. Discussed recommendations of cardiac catheterization and patient is agreeable to move forward. She is maintained on heparin drip. EKG: Sinus rhythm Chest x-ray: No acute process Laboratory studies: CBC within normal limits. Troponins negative x 2 followed by 0.044. Creatinine 0.48, potassium 3.9, magnesium 2.1. Triglycerides 159, cholesterol 212, LDL 122, HDL 58. Home cardiac medications: Amlodipine 5 mg at bedtime, Toprol-XL 50 mg daily. Event monitor 08/25 - 08/26/2022 revealed no atrial fibrillation, no pauses, no PVCs Echocardiogram performed in the office on 08/24/2022 revealed EF of 55%, mild concentric left ventricular hypertrophy, mild MR, mild TR. 02/28 Yesterday, patient underwent cardiac catheterization with Dr. Emmie Moore that revealed 95% stenosis in the circumflex coronary artery. Subsequently, patient underwent successful stenting of the mid circumflex by Dr. Chow with recommendations for dual antiplatelet therapy with aspirin and Plavix for 12 months and aggressive cholesterol control risk factor modification. Patient denies having any chest pain or shortness of breath no lightheadedness or dizziness. Blood pressure 111/68, heart rate 79, pulse ox 96% on room air. CBC within normal limits. Creatinine 0.45. Physical examination: Gen: This is a 58-year-old female in no acute distress VS: reviewed HEENT: Head is atraumatic, normocephalic. Pupils equal, round. Sclerae is anicteric. NECK: Supple. No JVD. LUNGS: Clear to auscultation. No wheezes or rhonchi. No intercostal retractions. HEART: Regular rate and rhythm. No murmur. ABDOMEN: Soft No tenderness. EXTREMITIES: No pedal edema. No calf tenderness. NEUROLOGICAL: Patient is awake, alert and oriented x3. Assessment: NSTEMI status post cardiac catheterization and stenting of the circumflex Hypertension Anxiety and depression Obstructive sleep apnea Plan: Continue patient on the following cardiac medications: Amlodipine 5 mg daily, aspirin 81 mg daily, atorvastatin 80 mg at bedtime, Plavix 75 mg daily, Toprol- XL 50 mg daily, Nitrostat. New prescriptions have been sent to her pharmacy for Plavix and atorvastatin Patient is cleared for discharge from cardiology May follow-up with Dr. Emmie Moore in 1 week. Nurse practitioner note has been reviewed, I agree with documented findings and plan of care. Patient was seen and examined. Objective - Vital Signs Vital signs: Vital Signs Temp 97.7 F 02/29/24 01:35 Pulse 79 02/29/24 01:35 Resp 18 02/29/24 01:35 BP 111/68 02/29/24 01:35 Pulse Ox 96 02/29/24 01:35 FiO2 Intake & Output 02/28/24 02/29/24 02/29/24 18:59 06:59 18:59 Intake Total 835.088 360 Balance 835.088 360 Intake: IV 550 Intake, IV Titration 45.088 Amount Heparin Sod,Pork in 0.45% 45.088 NaCl 25,000 unit In 0.45 % NaCl 1 250ml.bag @ 9.04 UNITS/KG/HR 10.005 mls/ hr IV .Q24H [facility] Rx#: [id number] Oral 240 360 Other: # Voids 1 3 - Labs CBC & Chem 7: 02/29/24 04:14 02/29/24 07:08 Labs: Abnormal Lab Results - Last 24 Hours (Table) 02/28/24 02/28/24 02/29/24 Range/Units 04:14 06:29 07:08 APTT 109.2 H* (22.0-30.0) sec Creatinine 0.45 L (0.52-1.04) mg/dL Triglycerides 159.00 H (0.00-149.00) mg/dL Cholesterol 212.00 H (0.00-200.00) mg/dL
[2024-02-29] MEDS ORDERED: ASPIRIN 325 MG TAB PO SCH (09:00)
--- NOTE | 2024-02-29 09:09 | P.DS ---
Providers Date of admission: 02/27/24 21:03 Expected date of discharge: 02/29/24 Attending physician: Sherine Terrell MD Consults: 02/27/24 21:03 Consult Physician Urgent Consulting Provider: Aakash Sanchez Consult Reason/Comments: chest pain Do you want consulting provider notified?: Yes 02/28/24 12:47 Consult Physician Routine Consulting Provider: [facility] Consult Reason/Comments: Post Interventional patient Do you want consulting provider notified?: Already Contacted Primary care physician: [facility] Course: 58 year old F with PMH of Asthma, GERD, HTN, sleep apnea, cervical CA, anxiety presented to the ED for chest pain that started yesterday associated with sweating and nausea. In the ED she underwent extensive evaluation. BP 166/103, HR 85, T 98.5, RR 16, 99% on RA. CBC, Coag panel, CMP significant for Cr 0.48. Troponins 0.014, 0.026, 0.044 with EKG showing sinus rhythm with Q wave in V3 and V4. She was started on a heparin drip and admitted for further workup and management. Patient was taken in for cardiac cath. Stent placed to LCx. Started on ASA and Plavix. Echo EF 55-60% G1DD. Lipid panel T. Chol 212, TG 159, LDL 122.1. A1c 5.9. Patient was taken in for cardiac cath. Stent placed to LCx. Started on ASA and Plavix. Echo EF 55-60% G1DD. 02/28 Patient was seen and examined. No chest pain. No complaints. Plans for discharge home today. Plans: Follow up with Cardiology within 1 week of discharge. Prescription sent for ASA, Lipitor, Plavix and Nitrostat PRN. General: non toxic, no distress, appears at stated age Derm: warm, dry Head: atraumatic, normocephalic, symmetric Eyes: EOMI, no lid lag, anicteric sclera Mouth: no lip lesion, mucus membranes moist Cardiovascular: Normal S1 S2 Lungs: Clear to auscultation bilaterally, no accessory muscle use Ext: no gross muscle atrophy, no edema, no contractures Neuro: no focal neuro deficits Psych: Alert, oriented, appropriate affect Discharge Plan NSTEMI Asthma GERD HTN Sleep apnea Anxiety This complex discharge took 35 minutes to complete. Patient Condition at Discharge: Stable Plan - Discharge Summary Discharge Rx Participant: No New Discharge Prescriptions: New Nitroglycerin Sl Tabs [Nitrostat] 0.4 mg SUBLINGUAL Q5M PRN #25 tab PRN Reason: Chest Pain Aspirin 81 mg PO DAILY tab Atorvastatin [Lipitor] 80 mg PO HS #90 tab Clopidogrel [Plavix] 75 mg PO DAILY #90 tab Continue Venlafaxine HCl ER [Effexor XR] 150 mg PO DAILY ALPRAZolam [Xanax] 0.5 mg PO TID PRN PRN Reason: Anxiety Omeprazole 20 mg PO BID Budesonide/Formoterol Fumarate [Symbicort 80-4.5 Mcg Inhaler] 2 puff INHALATION RT-BID PRN PRN Reason: Shortness Of Breath Metoprolol Succinate (ER) [Toprol XL] 50 mg PO DAILY amLODIPine [Norvasc] 5 mg PO HS Albuterol Sulfate [Ventolin HFA] 1 - 2 puff INHALATION RT-Q6H PRN PRN Reason: Shortness Of Breath Acetaminophen [Tylenol Arthritis] 1,300 mg PO BID@0700,1600 ALPRAZolam [Xanax] 0.5 mg PO BID PRN PRN Reason: Anxiety Venlafaxine HCl ER [Effexor XR] 37.5 mg PO DAILY Discontinued Ibuprofen [Motrin Ib] 800 mg PO BID@0700,1600 Discharge Medication List ALPRAZolam [Xanax] 0.5 mg PO TID PRN 01/07/14 [History] Venlafaxine HCl ER [Effexor XR] 150 mg PO DAILY 01/07/14 [History] Metoprolol Succinate (ER) [Toprol XL] 50 mg PO DAILY 07/22/23 [History] Omeprazole 20 mg PO BID 07/22/23 [History] amLODIPine [Norvasc] 5 mg PO HS 07/22/23 [History] ALPRAZolam [Xanax] 0.5 mg PO BID PRN 02/28/24 [History] Acetaminophen [Tylenol Arthritis] 1,300 mg PO BID@0700,1600 02/28/24 [History] Albuterol Sulfate [Ventolin HFA] 1 - 2 puff INHALATION RT-Q6H PRN 02/28/24 [History] Budesonide/Formoterol Fumarate [Symbicort 80-4.5 Mcg Inhaler] 2 puff INHALATION RT-BID PRN 02/28/24 [History] Venlafaxine HCl ER [Effexor XR] 37.5 mg PO DAILY 02/28/24 [History] Aspirin 81 mg PO DAILY tab 02/29/24 [Rx] Atorvastatin [Lipitor] 80 mg PO HS #90 tab 02/29/24 [Rx] Clopidogrel [Plavix] 75 mg PO DAILY #90 tab 02/29/24 [Rx] Nitroglycerin Sl Tabs [Nitrostat] 0.4 mg SUBLINGUAL Q5M PRN #25 tab 02/29/24 [Rx] Follow up Appointment(s)/Referral(s): Letha Conroy MD [Primary Care Provider] - 1-2 days Newton Moore MD [STAFF PHYSICIAN] - 1 Week Activity/Diet/Wound Care/Special Instructions: Diet: Cardiac Discharge Disposition: HOME SELF-CARE
[2024-02-29 09:32] VITALS: BP 121/71; PULSE 97; TEMP 98.2
[2024-02-29] MEDS: CLOPIDOGREL 75 MG TAB PO SCH (09:56)
[2024-02-29] MEDS: ASPIRIN 81 MG PO SCH (09:56)
[2024-02-29] MEDS: VENLAFAXINE HCL ER 37.5 MG CAP PO SCH (09:56)
[2024-02-29] MEDS: VENLAFAXINE HCL ER 150 MG CAP PO SCH (09:57)
[2024-02-29 10:46] LABS: INR 1.02 sec (0.93-1.11)
== END 2024-02-29 12:03 | disposition home or self-care (01) ==
LOC: EC 19:45 → 6NMEDSUR 21:03
PROVIDERS: ADMIT Internal Medicine; ATTEND Internal Medicine
DX: I21.4 Non-ST elevation (NSTEMI) myocardial infarction (principal); I11.9 Hypertensive heart disease without heart failure; E78.5 Hyperlipidemia, unspecified; R11.0 Nausea; M79.603 Pain in arm, unspecified; K21.9 Gastro-esophageal reflux disease without esophagitis; F32.A Depression, unspecified; G47.33 Obstructive sleep apnea (adult) (pediatric); R61 Generalized hyperhidrosis; J30.81 Allergic rhinitis due to animal (cat) (dog) hair and dander; F41.0 Panic disorder [episodic paroxysmal anxiety]; Z79.82 Long term (current) use of aspirin; Z79.51 Long term (current) use of inhaled steroids; Z79.899 Other long term (current) drug therapy; Z85.41 Personal history of malignant neoplasm of cervix uteri; Z88.8 Allergy status to other drugs, medicaments and biological substances; Z91.018 Allergy to other foods; Z99.89 Dependence on other enabling machines and devices
CPT/HCPCS: 96374; 99285; 36415; 94760; 93005 ×2; 93306; 92978; 93458; 80061; 80053; 84443; 82565; 83735; 84484 ×2; 85025 ×3; 85610 ×3; 85730 ×2; 83036; 71046; G0378 ×3; C9600; C1769 ×3; C1887 ×3; C1894; C1725; C1753; C1874; J2250; J2003; J3010; J1644 ×2; Q9967; J2305

== ENCOUNTER → 2024-04-20 | Outpatient (CLI) | payer MEDICAID ==
[2024-04-20 17:45] VITALS: BP 123/81; PULSE 83; RESP 18; TEMP 98.3
--- NOTE | 2024-04-20 18:09 | P.PROGSL ---
Subjective DATE: 04/20/2024 FOLLOW UP VISIT. Patient with obstructive sleep apnea hypopnea syndrome return to sleep center for follow-up visit. Information from previous visit have been reviewed. Patient is using PAP equipment every night for the whole night, getting PAP supplies in time. The patient does not have significant problems with the mask, PAP unit and humidification. Matador sleepiness scale is increased to 15. I checked information from PAP unit. PAP unit pressure 5-14, average 11.6 cm H2O. Usage is 97% for more then 4 hours, average 6.25 hours per night. Leak is 15.1 l/m, which is in acceptable range. Apnea Hypopnea Index is 1.5, which is normal. MEDICATIONS have been reviewed, please see below. During physical exam: GENERAL: A pleasant patient without any distress. VITAL SIGNS: Please see below, weight is 227.4 lbs. HEENT: PERRLA, EOMI.low position of soft palate, Mallapati 3. NECK: Supple. No JVD. LUNGS: Clear to percussion and to auscultation. Good air exchange. No wheezing or rhonchi. HEART: S1, S2 regular. ABDOMEN: Soft and nontender. Slightly obese EXTREMITIES: No clubbing or cyanosis. SLAB OFF MILL TENDER: Awake, alert, and oriented x3. No focal deficit. Impressions: 1. Obstructive sleep apnea-hypopnea syndrome. Patient demonstrated great compliance with treatment, benefiting from treatment. 2. Hypertension. 3. Coronary artery disease, status post stent insertion. 4. Asthma. 5. History of anxiety. 6. History of cervical cancer, treated surgically in 2018. 7. History of glaucoma. 8. Status post gastric sleeve in 2011. 9. Status post surgical treatment for basal cell carcinoma of the face. Plan: 1. Continue using PAP equipment every night for the whole night. 2. Sleep hygiene with regular time in bed for at least 7.5-8 hours 3. PAP unit should stay lower then position of the head. 4. Advised patient to remove all remaining water from humidifier canister daily and make it dry after each usage. Refill canister with fresh distilled water before each usage. 5. Watching and losing weight. 6. Precautions related to driving. No driving if feel any sleepiness. 7. I will maintain prescription for PAP supplies including mask, tube, filters. 8. Follow up visit in 8 months or earlier if patient has any problems. Thank you very much for allowing me to participate in the management of your patient. Geovanni Zepeda MD, PhD, FAASM. Diplomat of [employer], Sleep Medicine Board by [employer] Mental Health Clinician of [facility] [place] Objective - Vital Signs Vital Signs: Vital Signs Temp 98.3 F 04/20/24 17:43 Pulse 83 04/20/24 17:43 Resp 18 04/20/24 17:43 BP 123/81 04/20/24 17:43 Pulse Ox 96 04/20/24 17:43 FiO2 Intake & Output 04/19/24 04/20/24 04/20/24 18:59 06:59 18:59 Weight 103.079 kg Home Medications: Home Medications Medication Instructions Recorded Confirmed Type ALPRAZolam [Xanax] 0.5 mg PO TID PRN 01/07/14 02/28/24 History Venlafaxine HCl ER [Effexor XR] 150 mg PO DAILY 01/07/14 04/20/24 History Metoprolol Succinate (ER) [Toprol 50 mg PO DAILY 07/22/23 04/20/24 History XL] Omeprazole 20 mg PO BID 07/22/23 04/20/24 History amLODIPine [Norvasc] 5 mg PO HS 07/22/23 04/20/24 History ALPRAZolam [Xanax] 0.5 mg PO TID 02/28/24 04/20/24 History Acetaminophen [Tylenol Arthritis] 1,300 mg PO BID@0700,1600 02/28/24 04/20/24 History Albuterol Sulfate [Ventolin HFA] 1 - 2 puff INHALATION RT-Q6H PRN 02/28/24 02/28/24 History Budesonide/Formoterol Fumarate 2 puff INHALATION RT-BID PRN 02/28/24 04/20/24 History [Symbicort 80-4.5 Mcg Inhaler] Venlafaxine HCl ER [Effexor XR] 37.5 mg PO DAILY 02/28/24 04/20/24 History Atorvastatin [Lipitor] 80 mg PO HS #90 tab 02/29/24 04/20/24 Rx Clopidogrel [Plavix] 75 mg PO DAILY #90 tab 10/29/24 12/19/24 Rx Nitroglycerin Sl Tabs [Nitrostat] 0.4 mg SUBLINGUAL Q5M PRN #25 tab 02/29/24 04/20/24 Rx Albuterol Sulfate [Proair 1 puff INHALATION DIRECTED PRN 04/20/24 04/20/24 History Respiclick] Aspirin 81 mg PO DAILY 04/20/24 04/20/24 History
== END ==
LOC: 3 N SLEEP 16:33
PROVIDERS: ATTEND Internal Medicine
DX: G47.33 Obstructive sleep apnea (adult) (pediatric) (principal); I10 Essential (primary) hypertension; I25.10 Atherosclerotic heart disease of native coronary artery without angina pectoris; J45.909 Unspecified asthma, uncomplicated; F41.9 Anxiety disorder, unspecified; Z98.890 Other specified postprocedural states; Z99.89 Dependence on other enabling machines and devices; Z95.5 Presence of coronary angioplasty implant and graft; Z85.848 Personal history of malignant neoplasm of other parts of nervous tissue; Z85.828 Personal history of other malignant neoplasm of skin; Z88.8 Allergy status to other drugs, medicaments and biological substances; Z91.09 Other allergy status, other than to drugs and biological substances; Z91.018 Allergy to other foods; Z79.899 Other long term (current) drug therapy; Z79.51 Long term (current) use of inhaled steroids; Z79.02 Long term (current) use of antithrombotics/antiplatelets
CPT/HCPCS: 99212

== ENCOUNTER → 2024-06-06 | Outpatient (CLI) | payer MEDICAID ==
[2024-06-06 11:00] LABS: Basophils # (A) 0.04 X 10*3/uL (0.00-0.10); Basophils % (A) 0.6 %; Eosinophils # (A) 0.05 X 10*3/uL (0.04-0.35); Eosinophils % (A) 0.8 %; HCT 41.4 % (37.2-46.3); HGB 13.4 g/dL (12.0-15.0); Lymphocytes # (A) 2.94 X 10*3/uL (0.90-5.00); Lymphocytes % (A) 44.3 %; MCH 29.5 pg (27.0-32.0); MCHC 32.4 g/dL (32.0-37.0); Mean Platelet Volume 9.4 FL (9.5-12.2); Monocytes # (A) 0.38 X 10*3/uL (0.20-1.00); Monocytes % (A) 5.7 %; NRBC Per 100 WBC 0 X 10*3/uL (0.00-0.01); Neutrophils # (A) 3.21 X 10*3/uL (1.80-7.70); Neutrophils % (A) 48.3 %; Platelet Count 307 X 10*3/uL (140-440); RBC 4.55 X 10*6/uL (4.10-5.20); RDW 12.9 % (11.5-14.5); WBC 6.64 X 10*3/uL (4.50-10.00)
[2024-06-06 19:45] LABS: BUN/Creat Ratio 20.57 Ratio (12.00-20.00); Blood Urea Nitrogen 14.4 mg/dL (9.0-27.0); Chol/HDL Ratio 2.16 Ratio; Glucose 104 mg/dL (70-110); LDL Cholesterol,Calculated 51.7 mg/dL (0.0-131.0); VLDL Calculation 16.06 mg/dL (5.00-40.00)
[2024-06-06 19:46] LABS: ALT 35 U/L (8-44); AST 26 U/L (13-35); Albumin 4.5 g/dL (3.8-4.9); Albumin/Globulin Ratio 2.14 Ratio (1.60-3.17); Alkaline Phosphatase 96 U/L (41-126); Calcium 9.4 mg/dL (8.7-10.3); Chloride 106 mmol/L (96-109); Globulin 2.1 g/dL (1.6-3.3); Potassium 4.3 mmol/L (3.5-5.5); Sodium 143 mmol/L (135-145); Total Bilirubin 0.4 mg/dL (0.3-1.2); Total Protein 6.6 g/dL (6.2-8.2)
== END | disposition home or self-care (01) ==
LOC: LABWHC1 07:52
PROVIDERS: ATTEND Family Medicine
DX: Z00.00 Encounter for general adult medical examination without abnormal findings (principal); I10 Essential (primary) hypertension; I25.10 Atherosclerotic heart disease of native coronary artery without angina pectoris; Z79.899 Other long term (current) drug therapy
CPT/HCPCS: 36415; 80053; 80061; 84443; 85025

== ENCOUNTER → 2024-08-10 | Outpatient (CLI) | payer MEDICAID ==
[2024-08-10 15:31] LABS: ALT 36 U/L (8-44); AST 28 U/L (13-35); Chol/HDL Ratio 2.12 Ratio; LDL Cholesterol,Calculated 47.2 mg/dL (0.0-131.0); VLDL Calculation 18.28 mg/dL (5.00-40.00)
== END | disposition home or self-care (01) ==
LOC: LABWHC1 07:46
PROVIDERS: ATTEND Internal Medicine Cardiovascular Disease
DX: E78.2 Mixed hyperlipidemia (principal)
CPT/HCPCS: 36415; 80061; 84450; 84460